=== PATIENT | male | born 1975 | race Caucasian/White ===

== ENCOUNTER 2020-07-03 08:18 | Outpatient (REF) | payer OTHER, SELFPAY ==
--- NOTE | 2020-07-03 08:33 | US_ITS ---
EXAMINATION: US ABDOMEN COMPLETE CLINICAL INFORMATION: Steatohepatitis, elevated liver function tests. COMPARISON: Ultrasound abdomen complete dated 09/03/2018 and 04/10/2018. TECHNIQUE: Real-time imaging of the abdominal viscera. FINDINGS: PANCREAS: Normal. ABDOMINAL AORTA: The proximal, mid, and distal segments are normal in caliber. INFERIOR VENA CAVA: Visualized portions are normal. LIVER: Normal. The liver is normal in size. The liver contour is normal. Parenchymal echogenicity is normal. No focal hepatic lesion. There is no intrahepatic biliary duct dilatation seen. GALLBLADDER: Normal. The gallbladder is physiologically distended without evidence of stones, sludge, polyps, wall thickening or pericholecystic fluid. COMMON BILE DUCT: Normal in caliber measuring 0.26 cm in diameter. RIGHT KIDNEY: Normal. No hydronephrosis. No renal calculi or focal parenchymal lesions. The kidney measures 12.9 cm in maximum dimension. LEFT KIDNEY: Normal. No hydronephrosis. No renal calculi or focal parenchymal lesions. The kidney measures 13.4 cm in maximum dimension. SPLEEN: Normal. The spleen measures 11.3 cm in maximum dimension. FREE FLUID: None. US/US abdomen complete IMPRESSION: Unremarkable complete ultrasound abdomen. No hepatic steatosis seen on the present exam.
== END 2020-07-03 08:19 | disposition home or self-care (01) ==
LOC: HO.US 08:18
PROVIDERS: PCP Internal Medicine; Visit Provider Internal Medicine
DX: K75.81 Nonalcoholic steatohepatitis (NASH) (principal); R94.5 Abnormal results of liver function studies
CPT/HCPCS: 76700

== ENCOUNTER → 2020-08-03 08:49 | Outpatient (BNVA) | payer OTHER, SELFPAY | PROVIDERS: PCP Internal Medicine; Visit Provider Student in an Organized Health Care Education/Training Program | DX: M25.50 Pain in unspecified joint (principal); M67.912 Unspecified disorder of synovium and tendon, left shoulder; M67.911 Unspecified disorder of synovium and tendon, right shoulder; M77.11 Lateral epicondylitis, right elbow; M77.12 Lateral epicondylitis, left elbow | CPT/HCPCS: 99202 ==

== ENCOUNTER 2020-08-15 06:31 | Outpatient (REF) | payer OTHER, SELFPAY ==
[2020-08-15 07:49] LABS: Basophils Percent Auto 0.5 % (0-2); Eosinophils Absolute Auto 0.1 X10*3/uL (0.0-0.4); Eosinophils Percent Auto 1.3 % (0-4); Hematocrit 42.7 % (42-52); Hemoglobin 14.1 g/dl (14.0-18.0); Imm Gran Abs Auto 0.02 X10*3/uL (0.00-0.03); Imm Gran Pct Auto 0.3 % (0.0-0.4); Lymphocytes Percent Auto 24.5 % (20-40); MANUAL DIFF FLAG NO; Mean Corpuscular Hemoglobin 27.3 pg (27.0-33.0); Mean Corpuscular Volume 82.8 fL (80-98); Mean Platelet Volume 10.5 fL (9.4-12.4); Monocytes Absolute Auto 0.6 X10*3/uL (0.1-1.2); Monocytes Percent Auto 7.9 % (2-11); Neutrophils Absolute Auto 5.3 X10*3/uL (2.0-8.3); Neutrophils Percent Auto 65.5 % (45-73); Platelet Count 208 X10*3/uL (160-400); Red Blood Count 5.16 X10*6/uL (4.60-5.80); Red Cell Distribution Width 13.8 % (11.0-16.0)
[2020-08-15 07:57] LABS: INTERNATIONAL NORM RATIO 1.1 (0.9-1.1); Prothrombin Time 13.5 SEC (10.8-13.0)
[2020-08-15 13:08] LABS: Alanine Aminotransferase 18 U/L (0-40); Albumin Level 4.1 g/dL (3.5-5.0); Alkaline Phosphatase 76 U/L (39-117); Aspartate Amino Transferase 11 U/L (5-37); Bilirubin Direct 0.4 mg/dL (0.0-0.5); Total Protein 7.4 g/dL (6.5-8.0)
[2020-08-17 09:33] LABS: Alpha Fetoprotein 1.3 ng/mL (<6.1)
== END 2020-08-15 06:32 | disposition home or self-care (01) ==
LOC: HO.LAB 06:31
PROVIDERS: PCP Internal Medicine; Referring Provider Internal Medicine; Visit Provider Student in an Organized Health Care Education/Training Program
DX: K75.81 Nonalcoholic steatohepatitis (NASH) (principal); R94.5 Abnormal results of liver function studies
CPT/HCPCS: 36415; 80076; 82105; 85025; 85610

== ENCOUNTER → 2020-08-20 13:11 | Outpatient (BNVA) | payer OTHER, SELFPAY | PROVIDERS: PCP Internal Medicine; Visit Provider Physician Assistant | DX: M65.331 Trigger finger, right middle finger (principal) | CPT/HCPCS: 20550; 99212; J1020 ==

== ENCOUNTER → 2020-09-21 08:10 | Outpatient (BNVA) | payer OTHER, SELFPAY | PROVIDERS: PCP Internal Medicine; Visit Provider Student in an Organized Health Care Education/Training Program ==

== ENCOUNTER 2020-09-27 08:00 | Outpatient (RCR) | payer OTHER, SELFPAY ==
--- NOTE | 2020-08-09 15:21 | MHC.PT.EP ---
[facility] [place] Office [place] Office [place] [address] [phone] F: [phone] F: [phone] F: [phone] F: [phone] Physical Therapy Plan of Care Date of Evaluation: 08/09/20 Date of Surgery: NA Diagnosis: YENNY SHOULDER TENDONITIS R>L Assessment: PARVIN IS A PLEASANT 45 YO MALE WITH INCREASING YENNY SHOULDER PAIN. IMPAIRMENTS INCLUDE DECREASED SHOULDER ROM, ALTERED SOFT TISSUE MOBILIY, DECREASED STRENGTH, ALTERED POSTURE AND POSITIONING, INCREASED PAIN. FUNCTIONAL LIMITATIONS INCLUDE DECREASED ABILITY TO PERFORM LIFTING, REACHING, PUSHING AND PULLING. HE REPORTS DECREASED PARTICIPATION IN RECREATIONAL AND FITNESS ACTIVITIES AND DISRUPTED SLEEP. Frequency and Duration: The patient will be seen 2 X WEEK FOR 5 WEEKS Short Term Goals: INITIATE HEP AND SELF MANAGEMENT OF SYMPTOMS IN 2 WEEKS Residential Goals: TO PLACE 5# OBJECT ON SHELF AT SHOULDER HEIGHT WITH PAIN NO GREATER THAN 2/10 IN 5 WEEKS TO DEMONSTRATE STRONG, PAIN FREE RESISTED TESTING FOR ALL MOTIONS IN 5 WEEKS TO REPORT SLEEPING THROUGH THE NIGHT WITHOUT WAKING FROM PAIN IN 5 WEEKS Treatment Plan: Modalities to reduce pain, spasms and effusion. Manual therapy to restore motion and function. Therapeutic exercise to improve strength and flexibility. Neuromuscular re-education for posture and balance. Therapeutic activities to return to functional activities of daily living. Electronically signed by: ALLIE MATUTE PT, DPT Please sign and return to therapist. Thank you for your referral.
== END 2021-05-07 09:33 | disposition home or self-care (01) ==
LOC: HO.PT 08:00
PROVIDERS: Visit Provider Student in an Organized Health Care Education/Training Program
DX: M67.911 Unspecified disorder of synovium and tendon, right shoulder (principal); M67.912 Unspecified disorder of synovium and tendon, left shoulder
CPT/HCPCS: 97110; 97140; 97162; 97535

== ENCOUNTER 2020-10-01 09:38 | Outpatient (REF) | payer OTHER, SELFPAY ==
--- NOTE | 2020-10-01 09:44 | US_ITS ---
EXAMINATION: US DIAGNOSTIC ULTRASOUND BREAST, RIGHT CLINICAL INFORMATION: Palpable abnormality. COMPARISON: None. TECHNIQUE: Ultrasound of the breast is performed with real-time hernandez scale imaging and color Doppler. FINDINGS: Targeted right breast ultrasound about the palpable abnormality demonstrates within the chest wall 8 o'clock position, approximately 14 cm from the nipple, a circumscribed hypoechoic mass with internal vascularity and with lobulation. This measures approximately 3.0 x 3.0 x 1.0 cm in size. There is some mild increased through sound transmission with no distal sound shadowing. The lesion is wider than it is tall. Ultrasound-guided biopsy is recommended. Results are discussed with the patient at time of visit. US/US breast RT limited IMPRESSION: Palpable abnormality adjacent to chest wall is not well evaluated on mammography and appears external to the breasts and on ultrasound is a circumscribed lesion with one portion which is lobulated with internal vascular flow. This may represent a lipoma; however, patient says that this is a definite change within the last 2 months. ASSESSMENT: BI-RADS 4: Suspicious (subcategory 4A: Low suspicion for malignancy) RECOMMENDATION: Ultrasound-guided core biopsy right chest wall mass.
--- NOTE | 2020-10-01 09:44 | MM_ITS ---
EXAMINATION: MM DIAGNOSTIC DIGITAL BREAST TOMOSYNTHESIS, BILATERAL US TARGETED RIGHT BREAST CLINICAL INFORMATION: Palpable abnormality right breast for approximately 2 months. COMPARISON: Mammography: None TECHNIQUE: Digital breast tomosynthesis is performed in both the craniocaudal and mediolateral oblique views along with computer-aided detection (CAD). Synthesized 2D images are generated from the tomosynthesis. Spot right breast exaggerated craniocaudal view performed. Targeted right breast ultrasound. FINDINGS: The breasts are almost entirely fatty (ACR BI-RADS breast composition Category a). There are no significant masses, abnormal calcifications, or other abnormalities. There are some benign persistent left axillary calcifications after repeat washing. It is difficult to visualize the palpable abnormality due to its deep positioning about the chest wall. This may represent a lipoma. Targeted right breast ultrasound about the palpable abnormality demonstrates within the chest wall 8 o'clock position, approximately 14 cm from the nipple, a circumscribed hypoechoic mass with internal vascularity and with lobulation. There is some mild increased through sound transmission with no distal sound shadowing. The lesion is wider than it is tall. Ultrasound-guided biopsy is recommended. Results are discussed with the patient at time of visit. MM/MM tomosynthesis diagnostic BI IMPRESSION: Palpable abnormality adjacent to chest wall is not well evaluated on mammography and appears external to the breasts and on ultrasound is a circumscribed lesion with one portion which is lobulated with internal vascular flow. This may represent a lipoma; however, patient says that this is a definite change within the last 2 months. ASSESSMENT: BI-RADS 4: Suspicious (subcategory 4A: Low suspicion for malignancy) RECOMMENDATION: Ultrasound-guided core biopsy right chest wall mass. This patient's information was entered into a reminder system with a target due date for their next mammogram.
== END 2020-10-01 09:39 | disposition home or self-care (01) ==
LOC: HO.MAMMO 09:38
PROVIDERS: PCP Internal Medicine; Visit Provider Internal Medicine
DX: N63.13 Unspecified lump in the right breast, lower outer quadrant (principal)
CPT/HCPCS: 76642; 77062; 77066

== ENCOUNTER → 2020-10-09 10:50 | Outpatient (BNVA) | payer OTHER, SELFPAY | PROVIDERS: PCP Internal Medicine; Visit Provider Student in an Organized Health Care Education/Training Program ==

== ENCOUNTER 2020-10-23 07:28 | Outpatient (REF) | payer OTHER, SELFPAY ==
--- NOTE | ~2020-10-23 | US_ITS ---
EXAMINATION: ULTRASOUND GUIDED CORE BIOPSY SOFT TISSUE CLINICAL INFORMATION: 45 year old male with right lateral superficial chest wall mass subcutaneous space, likely benign lipoma. COMPARISON: Mammography and right chest wall ultrasound 10/01/2020. FINDINGS: Proper informed consent is obtained from the patient after discussion of the procedure, potential risks and complications, and alternatives. Patient was given an opportunity for questions. The patient appeared to understand. The patient consented to the procedure and signed the consent form. GUIDANCE: Ultrasound-guided; aseptic technique. LESION: Circumscribed oval mass subcutaneous right chest wall approximately 3.3 x 2.9 x 1.3 cm. APPROACH: Lateral medial. ANESTHESIA: 8 mL 1% lidocaine. DERMATOTOMY: Single skin bret dermatotomy performed. NEEDLE: 14-gauge Achieve core biopsy device with 13.5-gauge co-axial guide needle. CORES: 4. CLIP: HydroMARK; shape: open coil. The clip marker deployment is visible during realtime ultrasound. The patient tolerated the procedure well. No immediate complications. Home instructions reviewed with the patient. Final pathology results are pending. US/US breast ndl core biopsy RT IMPRESSION: 1. Status post ultrasound-guided core biopsy superficial right chest wall mass. 2. Clip placed: HydroMARK; shape: open coil. 3. Pathology pending. An addendum report will be issued.
== END 2020-10-23 07:29 | disposition home or self-care (01) ==
LOC: HO.MAMMO 07:28
PROVIDERS: PCP Internal Medicine; Visit Provider Internal Medicine
DX: R22.2 Localized swelling, mass and lump, trunk (principal)
CPT/HCPCS: 19083; 88305; A4648

== ENCOUNTER → 2020-11-21 08:52 | Outpatient (BNVA) | payer OTHER, SELFPAY | PROVIDERS: PCP Internal Medicine; Visit Provider Surgery | DX: D17.1 Benign lipomatous neoplasm of skin and subcutaneous tissue of trunk (principal) | CPT/HCPCS: 99202 ==

== ENCOUNTER → 2020-12-18 14:27 | Outpatient (BNVA) | payer OTHER, SELFPAY | PROVIDERS: Visit Provider Orthopaedic Surgery | DX: M65.342 Trigger finger, left ring finger (principal) | CPT/HCPCS: 99202 ==

== ENCOUNTER 2020-12-26 12:33 | Outpatient (REF) | payer OTHER, SELFPAY ==
[2020-12-26 12:30] VITALS: BP 134/71; PULSE 66; RESP 19; TEMP 36.5; O2SAT 100; BMI 31.1
--- NOTE | 2020-12-26 13:06 | W.PM.OPN ---
Operative Note Operative Note Date of Service: 12/26/20 Narrative: Preop diagnosis: Lipoma, right chest wall laterally Postop diagnosis: The same Procedure: excision of lipoma, right chest wall Surgeon: Calixto Ríos MD The patient is a 45-year-old male with note of a lipomatous mass on the right chest wall laterally. He understood the technique of excision under local anesthesia. He was ordered the risks, benefits, and alternatives He was brought to the minor procedure room placed in left lateral decubitus position. The area of the lipoma was prepped and draped in the usual sterile fashion. I infiltrated the planned line of incision overlying the skin using lidocaine 1%. Incision made on the skin using blade 15. It was carried down to full-thickness skin and subcutaneous fat using the blade. I then proceeded to use the Metzenbaum scissors to gently dissect the subcutaneous layer. I was palpating for the lipoma as we deepened the incision. Lipomas deep in subcutaneous layer and of thick amount subcutaneous the path fat before we able to visualize the lipoma for I sharply dissected the lipoma to freed from the rest of the he has layer and posteriorly. This was then delivered and sent as specimen. The lipoma measured about 3.8 cm in diameter. I irrigated the area of excision. I closed the sub deep subcutaneous layer with Dexon 3-0 interrupted sutures. Skin closure was achieved with nylon 3-0 interrupted sutures. Dressings were applied. He tolerated procedure well. There were no complications noted. Estimated blood loss about 5 cc
[2020-12-26 13:10] VITALS: BP 111/87; PULSE 98; RESP 19; O2SAT 100
--- NOTE | 2020-12-26 13:10 | PM.OP ---
Brief Operative Note Date of Service: 12/26/20 Pre-op diagnosis: Lipoma, right chest wall Post-op diagnosis: same Procedure: Excision of lipoma, right chest wall Surgeon: Calixto Ríos MD Anesthesia: local Estimated blood loss (mL): 5 Pathology: other (Lipoma) Condition: stable Disposition: other (Home)
== END 2020-12-26 12:34 | disposition home or self-care (01) ==
LOC: HO.MS 12:33
PROVIDERS: PCP Internal Medicine; Visit Provider Surgery
PROC: (CPT 21552; principal; 2020-12-26 13:00)
DX: D17.1 Benign lipomatous neoplasm of skin and subcutaneous tissue of trunk (principal)
CPT/HCPCS: 21552; 88304; 88341; 88342

== ENCOUNTER → 2021-01-04 09:36 | Outpatient (BNVA) | payer OTHER, SELFPAY | PROVIDERS: PCP Internal Medicine; Visit Provider Surgery | DX: D17.1 Benign lipomatous neoplasm of skin and subcutaneous tissue of trunk (principal) | CPT/HCPCS: 99212 ==

== ENCOUNTER → 2021-04-22 13:16 | Outpatient (BNVA) | payer OTHER, SELFPAY | PROVIDERS: PCP Internal Medicine; Visit Provider Anesthesiology | DX: M51.36 Other intervertebral disc degeneration, lumbar region (principal); M48.062 Spinal stenosis, lumbar region with neurogenic claudication; T85.192A Other mechanical complication of implanted electronic neurostimulator of spinal cord electrode (lead), initial encounter | CPT/HCPCS: 99202 ==

== ENCOUNTER 2021-04-23 10:05 | Outpatient (REF) | payer OTHER, SELFPAY ==
--- NOTE | ~2021-04-23 | XR_ITS ---
EXAMINATION: XR THORACOLUMBAR SPINE CLINICAL INFORMATION: Assess or abnormality of implanted device. COMPARISON: None TECHNIQUE: PA and lateral views of the thoracic spine were obtained. FINDINGS: Spinal stimulation leads are seen with tips terminating at the level of T8-9. The vertebral alignment is normal. No intrinsic bony abnormality. The disc heights and neural foramina are well maintained. The endplates and posterior elements are normal. No fracture or subluxation. The surrounding prevertebral soft tissues are unremarkable. XR/XR thoracic spine 2V IMPRESSION: 1. Spinal stimulation leads with tips terminating at T8-9 without abnormality. 2. No significant thoracic spine abnormality.
== END 2021-04-23 10:06 | disposition home or self-care (01) ==
LOC: HO.XRAY 10:05
PROVIDERS: PCP Internal Medicine; Visit Provider Anesthesiology
DX: T85.192A Other mechanical complication of implanted electronic neurostimulator of spinal cord electrode (lead), initial encounter (principal)
CPT/HCPCS: 72070

== ENCOUNTER → 2021-05-08 14:57 | Outpatient (BNVA) | payer OTHER, SELFPAY | PROVIDERS: PCP Internal Medicine; Visit Provider Anesthesiology | DX: M51.36 Other intervertebral disc degeneration, lumbar region (principal); M48.062 Spinal stenosis, lumbar region with neurogenic claudication; T85.192A Other mechanical complication of implanted electronic neurostimulator of spinal cord electrode (lead), initial encounter; I10 Essential (primary) hypertension; E66.9 Obesity, unspecified; Z68.34 Body mass index [BMI] 34.0-34.9, adult; Z96.82 Presence of neurostimulator | CPT/HCPCS: 99212 ==

== ENCOUNTER 2021-08-27 09:21 | Outpatient (REF) | payer OTHER, SELFPAY | END 2021-08-27 09:22 | disposition home or self-care (01) | LOC: HO.US 09:21 | PROVIDERS: PCP Internal Medicine; Visit Provider Internal Medicine | DX: Z13.89 Encounter for screening for other disorder (principal) ==

== ENCOUNTER 2021-09-23 08:14 | Outpatient (REF) | payer OTHER, SELFPAY ==
--- NOTE | ~2021-09-23 | US_ITS ---
EXAMINATION: US COMPLETE ABDOMEN WITH LIVER ELASTOGRAPHY CLINICAL INFORMATION: Elevated liver function tests. Liver fibrosis. COMPARISON: Previous abdominal ultrasounds, most recent July 2020. TECHNIQUE: Real-time imaging of the abdominal viscera. Noninvasive ultrasound liver fibrosis assessment is performed using Richardson ElastPQ point quantification shear wave elastography (2D-SWE) with a C5-2 MHz transducer. Multiple elastography samples are obtained. FINDINGS: PANCREAS: Not well visualized due to bowel gas. ABDOMINAL AORTA: The proximal, middle, and distal aortic segments are normal in caliber. INFERIOR VENA CAVA: Visualized portions are normal. LIVER: Liver echotexture is increased. The liver is normal in size and contour. No focal liver lesion or biliary duct dilatation. The right lobe measures 17 cm in length. The left lobe measures 13 cm in length. Portal flow is normal/hepatopedal. Shear wave liver elastography median stiffness is 1.6 m/s (reference: normal median stiffness is 1.3 m/s or less). IQR/median stiffness to assess sampling precision is 0.24 (reference: good quality data set is IQR/median stiffness of 0.15 or less). GALLBLADDER: Normal. The gallbladder is physiologically distended without evidence of stones, sludge, polyps, wall thickening or pericholecystic fluid. COMMON BILE DUCT: Normal in caliber measuring 0.5 cm in diameter. RIGHT KIDNEY: Normal. No hydronephrosis. No renal calculi or focal parenchymal lesions. The kidney measures 12.6 cm in maximum dimension. LEFT KIDNEY: Normal. No hydronephrosis. No renal calculi or focal parenchymal lesions. The kidney measures 13 cm in maximum dimension. SPLEEN: Normal. The spleen measures 12 cm in maximum dimension. FREE FLUID: None. US/US abdomen comp w elastography IMPRESSION: 1. Impression: Echogenic liver. Limited visualization of the pancreas. 2. Liver elastography: Limited due to sampling error. In the absence of other known clinical signs, rules out compensated advanced chronic liver disease. REFERENCE: Society of Radiologists in Ultrasound Liver Stiffness Thresholds (2020): LIVER STIFFNESS THRESHOLDS: *Liver Stiffness equal or less than 1.3 m/s: High probability of being normal. *Liver Stiffness less than 1.7 m/s: In the absence of other known clinical signs, rules out compensated advanced chronic liver disease. *Liver Stiffness 1.7-2.1 m/s: Suggestive of compensated advanced chronic liver disease but need further test for confirmation. *Liver Stiffness over 2.1 m/s: Rules in compensated advanced chronic liver disease. *Liver Stiffness over 2.4 m/s: Suggestive of clinically significant portal hypertension. QUALITY OF DATA SET: *IQR/Median value equal or less than 0.15 implies a quality data set. *IQR/Median value over 0.15 implies a poor quality data set. SIGNIFICANT CHANGE FROM PRIOR EXAM: Significant change if liver stiffness measurement is 10% or greater from prior exam. OTHER CONSIDERATIONS: The stage of liver fibrosis may be overestimated in the setting of acute hepatitis, liver inflammation, elevated liver function tests, hepatic vascular congestion, obstructive cholestasis, non-fasting state, and infiltrative diseases such as amyloidosis and lymphoma. In some patients with NAFLD, the liver stiffness thresholds for compensated advanced chronic liver disease may be lower. In causes other than viral hepatitis and NAFLD, liver stiffness thresholds are not well established.
== END 2021-09-23 08:15 | disposition home or self-care (01) ==
LOC: HO.US 08:14
PROVIDERS: Visit Provider Internal Medicine
DX: K75.81 Nonalcoholic steatohepatitis (NASH) (principal); R94.5 Abnormal results of liver function studies; K74.00 Hepatic fibrosis, unspecified
CPT/HCPCS: 76705; 76981

== ENCOUNTER 2022-01-28 06:56 | Outpatient (REF) | payer OTHER, SELFPAY ==
[2022-01-28 08:03] LABS: Alanine Aminotransferase 45 U/L (0-40); Albumin Level 3.9 g/dL (3.5-5.0); Alkaline Phosphatase 60 U/L (39-117); Aspartate Amino Transferase 17 U/L (5-37); Bilirubin Direct 0.3 mg/dL (0.0-0.5); Bilirubin Total 0.7 mg/dL (0.0-1.0); Total Protein 6.9 g/dL (6.5-8.0)
== END 2022-01-28 06:57 | disposition home or self-care (01) ==
LOC: HO.LAB 06:56
PROVIDERS: PCP Internal Medicine; Visit Provider Internal Medicine
DX: K76.0 Fatty (change of) liver, not elsewhere classified (principal); R94.5 Abnormal results of liver function studies
CPT/HCPCS: 36415; 80076

== ENCOUNTER → 2022-02-13 09:55 | Outpatient (BNVA) | payer OTHER, SELFPAY | PROVIDERS: PCP Internal Medicine; Visit Provider Anesthesiology | DX: M51.36 Other intervertebral disc degeneration, lumbar region (principal); T85.192A Other mechanical complication of implanted electronic neurostimulator of spinal cord electrode (lead), initial encounter; M48.062 Spinal stenosis, lumbar region with neurogenic claudication | CPT/HCPCS: 99212 ==

== ENCOUNTER 2022-02-26 17:55 | Outpatient (REF) | payer OTHER, SELFPAY | END 2022-02-26 17:56 | disposition home or self-care (01) | LOC: HO.MRI 17:55 | PROVIDERS: Visit Provider Anesthesiology | DX: Z13.89 Encounter for screening for other disorder (principal) ==

== ENCOUNTER 2022-03-17 07:22 | Day surgery (SDC) | payer OTHER, SELFPAY ==
[2022-03-11 16:00] VITALS: BMI 37.7
--- NOTE | 2022-03-14 09:21 | HO.ANESPROP2 ---
Documented by User: Jody Velasquez NP 03/14/22 09:22 HPI - Anesthesia Eval Consult details Narrative: 47yo M for Upper Endoscopy and Colonoscopy ? spinal stim in situ Chronic opioids PMFSH Active Problems Active Problems: All Active Problems (Updated 04/22/21 @ 14:10 by Buck Branch MD) Spinal stenosis of lumbar region with neurogenic claudication (Acute) Failed spinal cord stimulator (Acute) Disc degeneration, lumbar (Acute) Trigger finger, left ring finger (Acute) Lipoma of chest wall (Acute) Trigger middle finger of right hand (Acute) Lateral epicondylitis of both elbows (Acute) Tendinopathy of right rotator cuff (Acute) Tendinopathy of left rotator cuff (Acute) Polyarthralgia (Acute) Past Medical History Medical History Diabetes Disc degeneration, lumbar Failed spinal cord stimulator Hypertension Lipoma of chest wall Obesity Spinal stenosis of lumbar region with neurogenic claudication Family History Family History Father HTN (hypertension) Mother HTN (hypertension) Surgical History Surgical History H/O left knee surgery S/P insertion of spinal cord stimulator Social History Social History Alcohol intake: never Patient Tobacco Use Status: Never used Tobacco Use of substances other than those prescribed or required for medical reasons: No Are you DNR?: No Advance Directives: No Advance Directives Information Provided: Yes Recently lost weight without trying: No Nutrition Risks: No Nutritional Risk Meds Allergies Allergy/AdvReac Type Severity Reaction Status Date / Time No Known Allergies Allergy Verified 02/13/22 10:10 Home Medications Medication Instructions Recorded Confirmed Last Taken Type gabapentin 600 mg tablet 600 mg PO BEDTIME 08/03/20 11/21/20 Unknown History losartan 100 mg tablet 100 mg PO DAILY 08/03/20 11/21/20 Unknown History metformin 500 mg tablet 500 mg PO BID 08/03/20 11/21/20 Unknown History metoprolol succinate 100 mg 100 mg PO DAILY 08/03/20 11/21/20 Unknown History tablet,extended release 24 hr risperidone 2 mg tablet (Risperdal) 2 mg PO DAILY 08/03/20 11/21/20 Unknown History simvastatin 5 mg tablet 5 mg PO DAILY 08/03/20 11/21/20 Unknown History bupropion HCl 150 mg 24 hr tablet, 150 mg PO QAM 04/22/21 Unknown History extended release cyclobenzaprine 10 mg tablet 10 mg PO BEDTIME 04/22/21 Unknown History eszopiclone 3 mg tablet 3 mg PO BEDTIME PRN insomnia 04/22/21 Unknown History lorazepam 1 mg tablet 1 - 2 mg PO TID PRN anxiety 04/22/21 Unknown History methocarbamol 750 mg tablet 750 mg PO Q6H PRN 04/22/21 Unknown History omeprazole 20 mg capsule,delayed 20 mg PO DAILY 04/22/21 Unknown History release oxycodone-acetaminophen 5 mg-325 1 tab PO TID PRN 04/22/21 Unknown History mg tablet paroxetine HCl 40 mg tablet 40 mg PO DAILY 04/22/21 Unknown History risperidone 3 mg tablet 3 mg PO BEDTIME 04/22/21 Unknown History risperidone 4 mg tablet 4 mg PO QPM 04/22/21 Unknown History sulindac 200 mg tablet 200 mg PO BID 04/22/21 Unknown History topiramate 50 mg tablet 50 mg PO DAILY 04/22/21 Unknown History Exam Exam Date and Time: March 14, 2022920 Height,Weight and Vital Signs: Height 6 ft Weight 126.099 kg Assessment and Plan Assessment Anesthesia Assessment: Chart Reviewed Documented by User: Jess Baker MD 03/17/22 08:50 PMFSH Past Medical History Medical History Diabetes Disc degeneration, lumbar Failed spinal cord stimulator Hypertension Lipoma of chest wall Obesity Spinal stenosis of lumbar region with neurogenic claudication Functional capacity: independent ambulation Family History Family History Father HTN (hypertension) Mother HTN (hypertension) Family history of problems with anesthesia: No Surgical History Surgical History H/O left knee surgery S/P insertion of spinal cord stimulator History of Problems with Anesthesia: No Social History Social History Alcohol intake: never Patient Tobacco Use Status: Never used Tobacco Use of substances other than those prescribed or required for medical reasons: No Are you DNR?: No Advance Directives: No Advance Directives Information Provided: Yes Recently lost weight without trying: No Nutrition Risks: No Nutritional Risk Meds Allergies Allergy/AdvReac Type Severity Reaction Status Date / Time No Known Allergies Allergy Verified 02/13/22 10:10 Home Medications Medication Instructions Recorded Confirmed Last Taken Type gabapentin 600 mg tablet 600 mg PO BEDTIME 08/03/20 11/21/20 Unknown History losartan 100 mg tablet 100 mg PO DAILY 08/03/20 11/21/20 Unknown History metformin 500 mg tablet 500 mg PO BID 08/03/20 11/21/20 Unknown History metoprolol succinate 100 mg 100 mg PO DAILY 08/03/20 11/21/20 Unknown History tablet,extended release 24 hr risperidone 2 mg tablet (Risperdal) 2 mg PO DAILY 08/03/20 11/21/20 Unknown History simvastatin 5 mg tablet 5 mg PO DAILY 08/03/20 11/21/20 Unknown History bupropion HCl 150 mg 24 hr tablet, 150 mg PO QAM 04/22/21 Unknown History extended release cyclobenzaprine 10 mg tablet 10 mg PO BEDTIME 04/22/21 Unknown History eszopiclone 3 mg tablet 3 mg PO BEDTIME PRN insomnia 04/22/21 Unknown History lorazepam 1 mg tablet 1 - 2 mg PO TID PRN anxiety 04/22/21 Unknown History methocarbamol 750 mg tablet 750 mg PO Q6H PRN 04/22/21 Unknown History omeprazole 20 mg capsule,delayed 20 mg PO DAILY 04/22/21 Unknown History release oxycodone-acetaminophen 5 mg-325 1 tab PO TID PRN 04/22/21 Unknown History mg tablet paroxetine HCl 40 mg tablet 40 mg PO DAILY 04/22/21 Unknown History risperidone 3 mg tablet 3 mg PO BEDTIME 04/22/21 Unknown History risperidone 4 mg tablet 4 mg PO QPM 04/22/21 Unknown History sulindac 200 mg tablet 200 mg PO BID 04/22/21 Unknown History topiramate 50 mg tablet 50 mg PO DAILY 04/22/21 Unknown History Exam Airway Mallampati Class: III TM Dist: >3cm Neck ROM: Full Heart: RRR Lungs: CTA Assessment and Plan Final Anesthetic Review Family History of Problems with Anesthesia: No History of Problems with Anesthesia: No ASA Class: III Final Preanesthetic Review: No Changes in Pt Med Stat, Meds/Allgs Chart Reviewed, Consent Obtained/Reviewed and Anes Risks/Benef Reviewed Patient Risk: Intermediate Procedure Risk: Low Anesthetic Plan Anesthetic Plan: MAC: Disposition: Standard PACU
[2022-03-17 07:37] VITALS: BMI 36.6
[2022-03-17 07:47] VITALS: BP 140/92; PULSE 82; RESP 16; TEMP 36.2; O2SAT 97
[2022-03-17] MEDS: Lactated Ringers 1,000 ML 100 ML IVCONT (07:59)
[2022-03-17 08:01] LABS: Glucose, Whole Blood 100 mg/dL (60-115)
--- NOTE | 2022-03-17 09:29 | P.CONAN_ITS ---
[facility] [place] Active Problems Active Problems: All Active Problems (Updated 03/17/22 @ 07:18 by Radha Whittaker RN) Polyarthralgia (Acute) Tendinopathy of left rotator cuff (Acute) Tendinopathy of right rotator cuff (Acute) Lateral epicondylitis of both elbows (Acute) Trigger middle finger of right hand (Acute) Trigger finger, left ring finger (Acute) Spinal stenosis of lumbar region with neurogenic claudication (Acute) Failed spinal cord stimulator (Acute) Disc degeneration, lumbar (Acute) Lipoma of chest wall (Acute) Past Medical History Medical History Diabetes Disc degeneration, lumbar Failed spinal cord stimulator Hypertension Lipoma of chest wall Obesity Spinal stenosis of lumbar region with neurogenic claudication Functional capacity: independent ambulation Family History Family History Father HTN (hypertension) Mother HTN (hypertension) Family history of problems with anesthesia: No Surgical History Surgical History H/O left knee surgery S/P insertion of spinal cord stimulator History of Problems with Anesthesia: No Social History Social History Alcohol intake: never Patient Tobacco Use Status: Never used Tobacco Use of substances other than those prescribed or required for medical reasons: No Are you DNR?: No Advance Directives: No Advance Directives Information Provided: Yes Recently lost weight without trying: No Nutrition Risks: No Nutritional Risk Meds Allergies Allergy/AdvReac Type Severity Reaction Status Date / Time No Known Allergies Allergy Verified 02/13/22 10:10 Active Medications: Current Medications Lactated Ringer's (Lr) 1,000 mls @ 100 mls/hr IVCONT .Q10H RACHNA Last Admin: 03/17/22 07:59 Dose: 100 mls/hr Sodium Biphosphate/Sodium Phosphate (Sodium Phosphate,Garrard-Dibasic 133 Ml Enema) 133 ml MS ONCE PRN PRN Reason: Poor Colonoscopy Prep Results Home Medications Medication Instructions Recorded Confirmed Last Taken Type gabapentin 600 mg tablet 600 mg PO BEDTIME 08/03/20 11/21/20 Unknown History losartan 100 mg tablet 100 mg PO DAILY 08/03/20 11/21/20 Unknown History metformin 500 mg tablet 500 mg PO BID 08/03/20 11/21/20 Unknown History metoprolol succinate 100 mg 100 mg PO DAILY 08/03/20 11/21/20 Unknown History tablet,extended release 24 hr risperidone 2 mg tablet (Risperdal) 2 mg PO DAILY 08/03/20 11/21/20 Unknown History simvastatin 5 mg tablet 5 mg PO DAILY 08/03/20 11/21/20 Unknown History bupropion HCl 150 mg 24 hr tablet, 150 mg PO QAM 04/22/21 Unknown History extended release cyclobenzaprine 10 mg tablet 10 mg PO BEDTIME 04/22/21 Unknown History eszopiclone 3 mg tablet 3 mg PO BEDTIME PRN insomnia 04/22/21 Unknown History lorazepam 1 mg tablet 1 - 2 mg PO TID PRN anxiety 04/22/21 Unknown History methocarbamol 750 mg tablet 750 mg PO Q6H PRN 04/22/21 Unknown History omeprazole 20 mg capsule,delayed 20 mg PO DAILY 04/22/21 Unknown History release oxycodone-acetaminophen 5 mg-325 1 tab PO TID PRN 04/22/21 Unknown History mg tablet paroxetine HCl 40 mg tablet 40 mg PO DAILY 04/22/21 Unknown History risperidone 3 mg tablet 3 mg PO BEDTIME 04/22/21 Unknown History risperidone 4 mg tablet 4 mg PO QPM 04/22/21 Unknown History sulindac 200 mg tablet 200 mg PO BID 04/22/21 Unknown History topiramate 50 mg tablet 50 mg PO DAILY 04/22/21 Unknown History Exam Exam Date and Time: March 17, 2022 0929 Height,Weight and Vital Signs: Height 6 ft Weight 122.47 kg Last Vital Signs Temp 97.1 F 03/17/22 07:47 Pulse 82 03/17/22 07:47 Resp 16 03/17/22 07:47 BP 140/92 H 03/17/22 07:47 Pulse Ox 97 03/17/22 07:47 O2 Del Method 03/17/22 07:47 Pertinent Lab Results Pertinent Lab Results: Laboratory Tests 03/17/22 07:55 POC Glucose 100 Airway Mallampati Class: III TM Dist: >3cm Neck ROM: Full Heart: RRR Lungs: CTA Assessment and Plan Final Anesthetic Review Family History of Problems with Anesthesia: No History of Problems with Anesthesia: No ASA Class: III Final Preanesthetic Review: No Changes in Pt Med Stat, Meds/Allgs Chart Reviewed, Consent Obtained/Reviewed and Anes Risks/Benef Reviewed Patient Risk: Intermediate Procedure Risk: Low Anesthetic Plan Anesthetic Plan: MAC: Disposition: Standard PACU
[2022-03-17 09:56] VITALS: BP 147/94; PULSE 94; RESP 16; TEMP 36.2; O2SAT 96
--- NOTE | 2022-03-17 09:58 | PM.OP ---
Brief Operative Note Date of Service: 03/17/22 Pre-op diagnosis: GERD, Screening Post-op diagnosis: other (Hiatal hernia, Diverticulosis) Procedure: EGD with biopsies, Colonoscopy to the cecum and TI Surgeon: Yony Licona Anesthesia: MAC Was an Stretcher Leveler Operator used for this Procedure?: No Estimated blood loss (mL): 2.0 Pathology: other (A. EG Junction at 40cm) Condition: stable Disposition: PACU
[2022-03-17] MEDS: Acetaminophen 325 MG TABLET 650 MG PO (10:09)
[2022-03-17 10:11] VITALS: BP 145/85; PULSE 78; RESP 18; O2SAT 97
[2022-03-17 10:26] VITALS: BP 135/93; PULSE 76; RESP 18; TEMP 36.2; O2SAT 98
--- NOTE | 2022-03-17 10:40 | HO.POSTANES ---
Post Anesthesia Evaluation Post Anesthesia Evaluation Vital Signs: Vital Signs Temp Pulse Resp BP Pulse Ox O2 Del Method 03/17/22 10:26 97.1 F 76 18 135/93 H 98 Room Air 03/17/22 10:11 78 18 145/85 H 97 Room Air 03/17/22 09:56 97.1 F 94 16 147/94 H 96 Room Air 03/17/22 07:47 97.1 F 82 16 140/92 H 97 Room Air Anesthesia: Monitored Mental Status: Awake Pain Control: Satisfactory Nausea/Vomiting: None Hydration: Adequate Anesthesia-Related Issues: No Anes. Related Issues
--- NOTE | 2022-03-17 21:15 | OP_ITS ---
SURGEON: Yony Licona MD INDICATIONS: The patient presents for evaluation of colorectal cancer screening and gastroesophageal reflux. Full consent has been obtained from him for this, including risks of bleeding and perforation. PREOPERATIVE DIAGNOSIS: POSTOPERATIVE DIAGNOSIS: PROCEDURE PERFORMED: Esophagogastroduodenoscopy with biopsies and colonoscopy to the cecum and terminal ileum. ESTIMATED BLOOD LOSS: COMPLICATIONS: ANESTHESIA: Monitored anesthesia care. ASSISTANTS: SPECIMENS: PREOPERATIVE DIAGNOSES: Gastroesophageal reflux, colorectal cancer screening. POSTOPERATIVE DIAGNOSES: Diverticulosis, internal hemorrhoids, hiatal hernia, gastroesophageal reflux. DESCRIPTION OF PROCEDURE: The patient was placed in the left lateral decubitus position. The digital rectal exam revealed no abnormalities. The Olympus video pediatric colonoscope was entered into the rectum and advanced easily to the cecum. Once in the cecum, I did identify normal-appearing cecal pouch with appendiceal orifice and a normal-appearing ileocecal valve. The terminal ileum was cannulated and appeared normal. The scope was withdrawn back in the colon. The entire cecum and ileocecal valve appeared normal. The scope was then slowly withdrawn assessing all mucosal surfaces carefully. Preparation was excellent. I did not visualize any sign of polyps, colitis, nor angiodysplasia. There was a mild amount of sigmoid diverticulosis. In the rectum, scope was retroflexed visualizing internal hemorrhoids, but no other pathology. The rectal mucosa appeared normal. The scope was straightened and withdrawn from the patient. He was turned around for the upper endoscopy. The Olympus video gastroscope was passed in the posterior oropharynx and upper esophagus under direct vision. The scope was passed slowly to the distal esophagus. The gastroesophageal junction appeared at 40 cm. There was some evidence of edema, erythema, and minimal irregularity consistent with reflux. There was no evidence of esophagitis nor Pina's mucosa. The scope was advanced into the stomach. There was a small hiatal hernia. The scope was advanced to the pylorus and the duodenum was cannulated in the descending portion. The duodenum including the bulb appeared normal without mass or ulceration. The scope was withdrawn back into the stomach. The gastric antrum and body appeared normal good peristalsis. Scope was retroflexed visualizing the proximal stomach carefully which appeared normal, without any sign of mass or ulceration. The scope was straightened and withdrawn back to the esophagus. Biopsies were obtained at the EG junction at 40 cm. Proximal to this esophageal mucosa appeared normal. The scope was withdrawn from the patient. He tolerated the procedure well and was returned to the recovery area in stable condition. IMPRESSION: 1. Hiatal hernia, gastroesophageal reflux. 2. Diverticulosis. 3. Internal hemorrhoids. PLAN: The results of the biopsies will be checked. I would recommend a repeat colonoscopy in 10 years for further screening. He was advised to continue his daily omeprazole for relief of his reflux symptoms. He does have an appointment to see me again in the Fall for a followup of his underlying history of fatty liver. He was advised not to use any aspirin and NSAIDs for 1 week. Of note, he did mention some abdominal pain he was having. His abdominal ultrasound from August was negative for gallstones, nor any other significant pathology. I did advise him to let me know if this becomes more of a problem. This has all been discussed with his . MD PADMINI Disla/STEPHON / [id number] MTDD
== END 2022-03-17 10:55 | disposition home or self-care (01) ==
PROVIDERS: Visit Provider Internal Medicine
PROC: (CPT 45378; principal; 2022-03-17 08:30)
DX: Z12.11 Encounter for screening for malignant neoplasm of colon (principal); K57.30 Diverticulosis of large intestine without perforation or abscess without bleeding; K64.8 Other hemorrhoids; K21.9 Gastro-esophageal reflux disease without esophagitis; R94.5 Abnormal results of liver function studies; K75.81 Nonalcoholic steatohepatitis (NASH); K74.00 Hepatic fibrosis, unspecified; K44.9 Diaphragmatic hernia without obstruction or gangrene; I10 Essential (primary) hypertension; F31.9 Bipolar disorder, unspecified; E11.9 Type 2 diabetes mellitus without complications; G47.33 Obstructive sleep apnea (adult) (pediatric); Z99.89 Dependence on other enabling machines and devices; Z79.899 Other long term (current) drug therapy; Z79.84 Long term (current) use of oral hypoglycemic drugs
CPT/HCPCS: 45378; 43239; 82947; 88305

== ENCOUNTER → 2022-09-29 15:33 | Outpatient (BNVA) | payer OTHER, SELFPAY | PROVIDERS: PCP Internal Medicine; Visit Provider Anesthesiology | DX: M51.36 Other intervertebral disc degeneration, lumbar region (principal); T85.192A Other mechanical complication of implanted electronic neurostimulator of spinal cord electrode (lead), initial encounter; M48.062 Spinal stenosis, lumbar region with neurogenic claudication | CPT/HCPCS: 99212 ==

== ENCOUNTER 2022-10-23 08:50 | Outpatient (REF) | payer OTHER, SELFPAY ==
[2022-10-23 16:54] LABS: Urine Cytology See Pathology rpt
== END 2022-10-23 08:51 | disposition home or self-care (01) ==
LOC: HO.LAB 08:50
PROVIDERS: PCP Internal Medicine; Visit Provider Nurse Practitioner Family
DX: R31.29 Other microscopic hematuria (principal); N40.0 Benign prostatic hyperplasia without lower urinary tract symptoms
CPT/HCPCS: 88112; 99202

== ENCOUNTER 2022-11-03 09:19 | Outpatient (REF) | payer OTHER, SELFPAY ==
--- NOTE | ~2022-11-03 | US_ITS ---
EXAMINATION: US COMPLETE ABDOMEN WITH LIVER ELASTOGRAPHY CLINICAL INFORMATION: Fatty liver COMPARISON: None. TECHNIQUE: Real-time imaging of the abdominal viscera. Noninvasive ultrasound liver fibrosis assessment is performed using Richardson ElastPQ point quantification shear wave elastography (2D-SWE) with a C5-2 MHz transducer. Multiple elastography samples are obtained. FINDINGS: PANCREAS: The pancreas is completely obscured by gas.. ABDOMINAL AORTA: The proximal, middle, and distal aortic segments are normal in caliber. INFERIOR VENA CAVA: Visualized portions are normal. LIVER: The liver demonstrates normal size, lobulated contour and increased echogenicity. No focal lesion or intrahepatic biliary duct dilatation. The right lobe measures 16.0 cm in length. The left lobe measures 12.9 cm in length. Portal flow is hepatopedal Shear wave liver elastography median stiffness is 1.41 m/s (reference: normal median stiffness is 1.3 m/s or less). IQR/median stiffness to assess sampling precision is 0.09 (reference: good quality data set is IQR/median stiffness of 0.15 or less). GALLBLADDER: Normal. The gallbladder is physiologically distended without evidence of stones, sludge, polyps, wall thickening or pericholecystic fluid. COMMON BILE DUCT: Normal in caliber measuring 0.6 cm in diameter. RIGHT KIDNEY: Normal. No hydronephrosis. No renal calculi or focal parenchymal lesions. The kidney measures 12.1 cm in maximum dimension. LEFT KIDNEY: Normal. No hydronephrosis. No renal calculi or focal parenchymal lesions. The kidney measures 13.1 cm in maximum dimension. SPLEEN: Normal. The spleen measures 11.5 cm in maximum dimension. FREE FLUID: None. US/US abdomen comp w elastography IMPRESSION: 1. Slightly however there are echogenic liver without focal lesion. Mild hepatic steatosis 2. Liver elastography: Median liver stiffness measures 1.41 m/s corresponding to cACLD (ruled out) REFERENCE: Society of Radiologists in Ultrasound Liver Stiffness Thresholds (2019): LIVER STIFFNESS THRESHOLDS: *Liver Stiffness equal or less than 1.3 m/s: High probability of being normal. *Liver Stiffness less than 1.7 m/s: In the absence of other known clinical signs, rules out compensated advanced chronic liver disease. *Liver Stiffness 1.7-2.1 m/s: Suggestive of compensated advanced chronic liver disease but need further test for confirmation. *Liver Stiffness over 2.1 m/s: Rules in compensated advanced chronic liver disease. *Liver Stiffness over 2.4 m/s: Suggestive of clinically significant portal hypertension. QUALITY OF DATA SET: *IQR/Median value equal or less than 0.15 implies a quality data set. *IQR/Median value over 0.15 implies a poor quality data set. SIGNIFICANT CHANGE FROM PRIOR EXAM: Significant change if liver stiffness measurement is 10% or greater from prior exam. OTHER CONSIDERATIONS: The stage of liver fibrosis may be overestimated in the setting of acute hepatitis, liver inflammation, elevated liver function tests, hepatic vascular congestion, obstructive cholestasis, non-fasting state, and infiltrative diseases such as amyloidosis and lymphoma. In some patients with NAFLD, the liver stiffness thresholds for compensated advanced chronic liver disease may be lower. In causes other than viral hepatitis and NAFLD, liver stiffness thresholds are not well established.
== END 2022-11-03 09:20 | disposition home or self-care (01) ==
LOC: HO.US 09:19
PROVIDERS: PCP Internal Medicine; Visit Provider Internal Medicine
DX: K75.81 Nonalcoholic steatohepatitis (NASH) (principal); K74.00 Hepatic fibrosis, unspecified; R94.5 Abnormal results of liver function studies
CPT/HCPCS: 76705; 76981

== ENCOUNTER 2022-11-10 09:44 | Outpatient (REF) | payer OTHER, SELFPAY ==
--- NOTE | ~2022-11-10 | US_ITS ---
EXAMINATION: US PELVIS LIMITED (BLADDER) CLINICAL INFORMATION: Benign prostatic hyperplasia without lower urinary tract symptoms. COMPARISON: None TECHNIQUE: Real-time imaging of the bladder. FINDINGS: BLADDER: Well distended and normal. Bilateral ureteral jets are demonstrated. Prevoid bladder volume is 165 mL. Postvoid bladder volume is 3 mL. Prostate volume 27 mL. US/US bladder IMPRESSION: The prostate measures 27 mL.
== END 2022-11-10 09:45 | disposition home or self-care (01) ==
LOC: HO.US 09:44
PROVIDERS: PCP Internal Medicine; Visit Provider Nurse Practitioner Family
DX: N40.0 Benign prostatic hyperplasia without lower urinary tract symptoms (principal); R31.29 Other microscopic hematuria
CPT/HCPCS: 76857

== ENCOUNTER 2022-12-02 06:56 | Outpatient (REF) | payer OTHER, SELFPAY ==
[2022-12-02 08:30] LABS: PSA,Total (Free>4and<10) 0.43 ng/mL (0.00-4.00)
== END 2022-12-02 06:57 | disposition home or self-care (01) ==
LOC: HO.LAB 06:56
PROVIDERS: PCP Internal Medicine; Visit Provider Nurse Practitioner Family
DX: N40.0 Benign prostatic hyperplasia without lower urinary tract symptoms (principal); R31.29 Other microscopic hematuria
CPT/HCPCS: 36415; 84153

== ENCOUNTER → 2022-12-03 10:24 | Outpatient (BNVA) | payer OTHER, SELFPAY | PROVIDERS: PCP Internal Medicine; Visit Provider Nurse Practitioner Family | DX: N40.0 Benign prostatic hyperplasia without lower urinary tract symptoms (principal); N52.9 Male erectile dysfunction, unspecified; R31.29 Other microscopic hematuria | CPT/HCPCS: 51798; 99212 ==

== ENCOUNTER 2023-06-25 09:57 | Outpatient (REF) | payer OTHER, SELFPAY ==
--- NOTE | ~2023-06-25 | XR_ITS ---
EXAMINATION: XR CERVICAL SPINE CLINICAL INFORMATION: Neck pain COMPARISON: None available. TECHNIQUE: 5 views of the cervical spine FINDINGS: C7 vertebral body partially obscured by overlying soft tissues. Mild spondylosis in the lower cervical spine. Cervical disc space heights are preserved. Alignment maintained. XR/XR cervical spine 5V IMPRESSION: Mild spondylosis in the lower cervical spine.
== END 2023-06-25 09:58 | disposition home or self-care (01) ==
LOC: HO.XRAY 09:57
PROVIDERS: PCP Internal Medicine; Visit Provider Internal Medicine
DX: M54.2 Cervicalgia (principal)
CPT/HCPCS: 72050

== ENCOUNTER 2023-11-24 09:25 | Outpatient (REF) | payer OTHER, SELFPAY ==
--- NOTE | ~2023-11-24 | US_ITS ---
EXAMINATION: US COMPLETE ABDOMEN WITH LIVER ELASTOGRAPHY CLINICAL INFORMATION: Nonalcoholic steatohepatitis. COMPARISON: Abdominal ultrasound with elastography dated 11/03/2022. TECHNIQUE: Real-time imaging of the abdominal viscera. Noninvasive ultrasound liver fibrosis assessment is performed using Richardson ElastPQ point quantification shear wave elastography (2D-SWE) with a C5-2 MHz transducer. Multiple elastography samples are obtained. FINDINGS: PANCREAS: Largely obscured by overlapping bowel gas. ABDOMINAL AORTA: The proximal, middle, and distal aortic segments are normal in caliber. INFERIOR VENA CAVA: Visualized portions are normal. LIVER: The liver demonstrates normal size, contour and echogenicity. No focal lesion or intrahepatic biliary duct dilatation. The right lobe measures 15.6 cm in length. The left lobe measures 11.5 cm in length. Portal flow is towards the liver (hepatopetal). Shear wave liver elastography median stiffness is 1.09 m/s (reference: normal median stiffness is 1.3 m/s or less). IQR/median stiffness to assess sampling precision is 0.06 (reference: good quality data set is IQR/median stiffness of 0.15 or less). GALLBLADDER: Normal. The gallbladder is physiologically distended without evidence of stones, sludge, polyps, wall thickening or pericholecystic fluid. COMMON BILE DUCT: Borderline increased in caliber, measuring 0.8 cm in diameter. RIGHT KIDNEY: At the lower pole, a 7 mm benign, simple cyst is seen, for which no imaging follow-up is recommended. No hydronephrosis. No renal calculi or focal parenchymal lesions. The kidney measures 12.2 cm in maximum dimension. LEFT KIDNEY: Normal. No hydronephrosis. No renal calculi or focal parenchymal lesions. The kidney measures 12.5 cm in maximum dimension. SPLEEN: Normal. The spleen measures 11.0 cm in maximum dimension. FREE FLUID: None. US/US abdomen comp w elastography IMPRESSION: 1. There is generalized increase in hepatic echotexture, consistent with fatty infiltration or hepatocellular disease. Please correlate clinically. No focal hepatic mass or intrahepatic biliary dilatation is seen. 2. Liver elastography: Measurements are consistent with a high probability of normal liver stiffness. When compared with prior exam, there is a statistically significant decrease in liver stiffness (decrease at least 10%). 3. There is borderline enlargement of the common bile duct. No intrahepatic biliary ductal dilatation is seen. 4. Technically limited examination, in particular of the pancreas. REFERENCE: Society of Radiologists in Ultrasound Liver Stiffness Thresholds (2020): LIVER STIFFNESS THRESHOLDS: *Liver Stiffness equal or less than 1.3 m/s: High probability of being normal. *Liver Stiffness less than 1.7 m/s: In the absence of other known clinical signs, rules out compensated advanced chronic liver disease. *Liver Stiffness 1.7-2.1 m/s: Suggestive of compensated advanced chronic liver disease but need further test for confirmation. *Liver Stiffness over 2.1 m/s: Rules in compensated advanced chronic liver disease. *Liver Stiffness over 2.4 m/s: Suggestive of clinically significant portal hypertension. QUALITY OF DATA SET: *IQR/Median value equal or less than 0.15 implies a quality data set. *IQR/Median value over 0.15 implies a poor quality data set. SIGNIFICANT CHANGE FROM PRIOR EXAM: Significant change if liver stiffness measurement is 10% or greater from prior exam. OTHER CONSIDERATIONS: The stage of liver fibrosis may be overestimated in the setting of acute hepatitis, liver inflammation, elevated liver function tests, hepatic vascular congestion, obstructive cholestasis, non-fasting state, and infiltrative diseases such as amyloidosis and lymphoma. In some patients with NAFLD, the liver stiffness thresholds for compensated advanced chronic liver disease may be lower. In causes other than viral hepatitis and NAFLD, liver stiffness thresholds are not well established.
== END 2023-11-24 09:26 | disposition home or self-care (01) ==
LOC: HO.US 09:25
PROVIDERS: PCP Internal Medicine; Visit Provider Internal Medicine
DX: R74.8 Abnormal levels of other serum enzymes (principal); K75.81 Nonalcoholic steatohepatitis (NASH)
CPT/HCPCS: 76700; 76981

== ENCOUNTER 2023-12-03 08:01 | Outpatient (REF) | payer OTHER, SELFPAY ==
[2023-12-03 09:30] LABS: Prostate Specific Antigen 0.37 ng/mL (<0.05-4.0)
== END 2023-12-03 08:02 | disposition home or self-care (01) ==
LOC: HO.LAB 08:01
PROVIDERS: PCP Internal Medicine; Visit Provider Nurse Practitioner Family
DX: Z12.5 Encounter for screening for malignant neoplasm of prostate (principal); N40.0 Benign prostatic hyperplasia without lower urinary tract symptoms
CPT/HCPCS: 36415; 84153

== ENCOUNTER 2023-12-04 09:24 | Outpatient (REF) | payer OTHER, SELFPAY ==
[2023-12-04 16:41] LABS: Urine Cytology See Pathology rpt
== END 2023-12-04 09:25 | disposition home or self-care (01) ==
LOC: HO.LNP 09:24
PROVIDERS: Visit Provider Nurse Practitioner Family
DX: R31.29 Other microscopic hematuria (principal); N52.9 Male erectile dysfunction, unspecified; N40.0 Benign prostatic hyperplasia without lower urinary tract symptoms
CPT/HCPCS: 51798; 81003; 88112; 99212

== ENCOUNTER 2023-12-04 09:24 | Outpatient (AMB) | payer OTHER, SELFPAY ==
--- NOTE | 2023-12-04 09:32 | MHC.OFFVIS ---
Intake Intake Visit Reasons: 1 yr follow up pvr / labs Intake Note: Patient is present for follow up BPH/microscopic hematuria PSA: 0.37 Urology Medications: sildenafil, tadalafil Blood Thinner: none PVR: 24ml's Photo Intern Required: No Accompanied by: Self / Same As Patient Allergies No Known Allergies Allergy (Verified 12/04/23 10:08) Medication List - Last Reconciled 12/04/23 by QUEENIE LoweryP- bupropion HCl XL 150 mg PO QAM cyclobenzaprine 10 mg PO BEDTIME eszopiclone 3 mg PO BEDTIME PRN lorazepam 1 - 2 mg PO TID PRN losartan 100 mg PO DAILY metformin 1,000 mg PO BID metoprolol succinate ER 100 mg PO DAILY olmesartan-hydrochlorothiazide 40-25 mg 1 tab PO DAILY omeprazole 20 mg PO DAILY paroxetine HCl 40 mg PO DAILY risperidone 4 mg PO QPM rosuvastatin 20 mg PO BEDTIME sildenafil 100 mg PO DAILY tadalafil (Cialis) 5 mg PO DAILY 90 days ursodiol 1,000 mg PO BID HPI HPI Comments History of Present Illness Details Yannick is a pleasant 48 year old male patient of Dr. Gomez. He has a past medical history of obstructive sleep apnea, depression, bipolar disorder, hypercholesteremia, GERD, diabetes, obesity, and hypertension. He presents to the office today for follow-up of his ED and microscopic hematuria. In discussion with the patient today reports to be doing and feeling well. He reports noting significant improvement in maintaining and obtaining erections with 5 mg of Cialis daily. Recent PSA results reviewed with the patient today: 12/21 0.4, 12/22 0.4 Previous workup has included a bladder ultrasound noting bilateral ureteral jets are demonstrated. Pre void bladder room is 165 mL. Postvoid bladder volume is 3 mL. Prostate volume 27 mL. He otherwise denies any other issues and or concerns. When asked patient denies urinary frequency, urinary urgency, urinary incontinence, hematuria, dysuria, flank pain, fever and or chills. In office UA with microscopic hematuria otherwise WNL.Cytology 10/23 Negative for high-grade urothelial carcinoma. When asked patient he denies previous smoking history and or workplace chemical exposure. Discussed at length potential causes for microscopic hematuria. Discussed reasons for blood in the urine may include but are not limited to kidney stones, cancer in the urinary tract, BPH, kidney stone disease or inflammatory conditions of the urinary tract. I have discussed workup to include cystoscopy evaluation. He otherwise offers no other issues or concerns at this time. [facility] Medical History NEVAEH (obstructive sleep apnea) Depression Bipolar disorder Elevated cholesterol On beta krishna at home Hiatal hernia GERD (gastroesophageal reflux disease) Diabetes Spinal stenosis of lumbar region with neurogenic claudication Failed spinal cord stimulator Disc degeneration, lumbar Lipoma of chest wall Obesity Hypertension Surgical History History of esophagogastroduodenoscopy (EGD) Hx of colonoscopy H/O left knee surgery S/P insertion of spinal cord stimulator Family History Father HTN (hypertension) Mother HTN (hypertension) Social History Alcohol intake: never Patient Tobacco Use Status: Never used Tobacco Review of Systems Eyes Reports no additional complaints ENT Reports no additional complaints Card Reports as per HPI Resp Reports as per HPI GI Reports as per HPI Reports as per HPI Musc Reports as per HPI Neuro Reports no additional complaints Psych Reports as per [facility] Endo Reports as per HPI Johnathon/Lymph Reports no additional complaints Aller/Immun Reports no additional complaints Physical Exam Const General: cooperative, healthy appearing, comfortable, no acute distress, well developed, alert and awake Nutritional Appearance: overweight Orientation/consciousness: patient oriented x3 Limitations: no limitations HEENT Head: Yes normal to inspection, Yes normocephalic and Yes atraumatic Ears: hearing grossly normal bilaterally Eyes General: appearance normal, both eyes and all related structures Neck Neck: Yes normal visual inspection and Yes trachea midline Chest Chest palpation & inspection: normal inspection of the chest Resp Effort & Inspection: normal respiratory effort and able to speak in complete sentences Cardio Rate: regular rate GI Inspection: Yes normal to inspection General: Yes no CVA tenderness and Yes deferred Back/Spine/Pelvis Back: no CVA tenderness Skin General skin exam: no rashes or lesions noted Neuro General: patient oriented x3 Extrem General: Yes normal to inspection Psych Appearance: grossly normal and well kempt Mental Status: mental status grossly normal Speech and movement: Normal speech and movement present and Clear speech present Affect: normal affect Attitude: cooperative Thought process: Normal thought process present Thought content: Normal thought content present Insight: Good insight present (Psych) Judgement: Good judgement present (Psych) Office Procedures Post Void Residual Post Residual Void Post Void Residual (PVR): [id number] Void Residual by ultrasound Results AMB Urinalysis, Automated UA Leukoctes 0 Carlos/uL Last Edit by Poonam Trevino on 12/04/23 10:00 UA Nitrite Negative Last Edit by Poonam Trevino on 12/04/23 10:00 UA Urobilinogen 0.2 mg/dL Last Edit by [facility] RingDNAjessica on 12/04/23 10:00 UA Protein 15 mg/dL Last Edit by [email or web address] on 12/04/23 10:00 UA pH 6.5 Last Edit by Nallatechlata Trevino on 12/04/23 10:00 UA Blood 25 Gutierrez/uL Last Edit by Nallatechlata Trevino on 12/04/23 10:00 UA Specific [place] 1.015 Last Edit by Poonam Trevino on 12/04/23 10:00 UA Ketone Negative Last Edit by Nallatechlata RingDNAjessica on 12/04/23 10:00 UA Bilirubin 0 mg/dL Last Edit by [email or web address] on 12/04/23 10:00 UA Glucose 0 mg/dL Last Edit by [facility] Trevino on 12/04/23 10:00 Results Reviewed Results Reviewed: Laboratory Last Values Urine pH (Auto) 6.5 12/04/23 09:39 Specific [place] (Auto) 1.015 12/04/23 09:39 Urine Protein (Auto) 15 mg/dL 12/04/23 09:39 Glucose (UA)(Auto) 0 mg/dL 12/04/23 09:39 Urine Ketones (Auto) Negative 12/04/23 09:39 Urine Blood (Auto) 25 Gutierrez/uL 12/04/23 09:39 Urine Nitrite (Auto) Negative 12/04/23 09:39 Urine Bilirubin (Auto) 0 mg/dL 12/04/23 09:39 Urine Urobilinogen (Auto) 0.2 mg/dL 12/04/23 09:39 Leukocyte Esterase (Auto) 0 Carlos/uL 12/04/23 09:39 Assessment & Plan Assessment & Plan (1) Erectile dysfunction: Code(s): N52.9 - Male erectile dysfunction, unspecified (2) BPH (benign prostatic hyperplasia): Code(s): N40.0 - Benign prostatic hyperplasia without lower urinary tract symptoms (3) Microscopic hematuria: Code(s): R31.29 - Other microscopic hematuria Plan In office urinalysis results reviewed with the patient today; as noted above; will send for urine cytology. Discussed and stressed the importance of lifestyle modifications to assist with erectile dysfunction. Continue 5 mg of Cialis daily; refill provided. Discussed at length importance of managing diabetes for erectile dysfunction and overall health and well-being. Recent PSA results reviewed with the patient today; as noted above. Discussed at length potential causes for microscopic hematuria as well as further workup; risks and benefits of further treatment options were discussed; will continue with surveillance monitoring at this time per patient request. He otherwise offers no bothersome urinary issues or concerns. He is happy with his current voiding parameters. Follow-up in 1 year with lab to be completed prior; or sooner with any issues, concerns, and or questions. Orders: Orders AMB Urinalysis Automated Today Z13.9 - Encounter for screening, unspecified AMB Post Void Residual by ultrasound Today N40.0 - Benign prostatic hyperplasia without lower urinary tract symptoms Medications: Refilled tadalafil (Cialis) BRYAN [facility] [address] [id number] 5 mg PO DAILY 90 days 90 tabs 3RF Patient Instructions: The patient had an opportunity to ask questions regarding the treatment plan. All questions were answered. Physical exam, labs, and imaging were discussed and reviewed in detail. As well as risks, benefits, and discussion of treatment choices. No major barriers to understanding were identified. The patient expressed understanding and agreement with the above treatment plan. The patient was made aware they should contact our office by phone for worsening of their current condition, the appearance of new symptoms, or with any questions or concerns. Compliance is encouraged with any medications and follow up testing that is ordered. It is a privilege to be allowed the opportunity to participate in? your urological care.? Again, if you have any questions or concerns If you have any questions or concerns please do not hesitate to contact me. The office is [phone]. This note is constructed using voice recognition software. While every effort has been made to ensure accuracy field irrigation worker errors may have been included. Yours sincerely, LEANNA Lowery-BC Coding Level of Care Code Est Pt Level 3 (56621) Diagnoses Erectile dysfunction N52.9 BPH (benign prostatic hyperplasia) N40.0 Microscopic hematuria R31.29 CPT Codes Post Residual Void - PVR CPT Code: 50377-Voca Void Residual by ultrasound ([id number])
== END 2023-12-04 10:09 | disposition home or self-care (01) ==
PROVIDERS: PCP Internal Medicine; Visit Provider Nurse Practitioner Family
DX: N52.9 Male erectile dysfunction, unspecified (principal); N40.0 Benign prostatic hyperplasia without lower urinary tract symptoms; R31.29 Other microscopic hematuria; Z13.9 Encounter for screening, unspecified
CPT/HCPCS: 99213

== ENCOUNTER → 2024-01-26 13:59 | Outpatient (RCR) | payer OTHER, SELFPAY | END | disposition home or self-care (01) | LOC: HO.OT 08-08 07:41 | PROVIDERS: Visit Provider Student in an Organized Health Care Education/Training Program | DX: M25.522 Pain in left elbow (principal); M25.521 Pain in right elbow | CPT/HCPCS: 97035; 97140; 97165 ==

== ENCOUNTER 2024-11-17 08:20 | Outpatient (REF) | payer OTHER, SELFPAY ==
--- NOTE | ~2024-11-17 | US_ITS ---
EXAMINATION: US ABDOMEN COMPLETE WITH LIVER ELASTOGRAPHY HISTORY: FATTY LIVER, ELEVATED LFTS TECHNIQUE: Real-time grayscale ultrasound imaging of the abdomen was performed and images were reviewed. COMPARISON: Comparison is made with the prior examination dated 11/24/2023. FINDINGS: Liver: The right lobe of the liver measures 16.6 cm in size. The left lobe of the liver measures 10.6 cm in size. The liver demonstrates increased echotexture, consistent with steatosis. No focal mass or intrahepatic biliary ductal dilatation is identified. There is normal hepatopedal flow in the portal vein. Ultrasound elastography of the liver was performed with 10 separate measurements of the liver parenchyma with the patient in the supine position. Measurements were obtained approximately 2 cm below Bee's capsule and perpendicular to the capsule. Images are of satisfactory quality. The median shear wave velocity is 1.24 m/s (previously 1.09 m/s). The interquartile range/median (IQR/median) is 0.15. Gallbladder and biliary tree: The gallbladder is unremarkable, without evidence of calculi, wall thickening, or pericholecystic fluid. There is no sonographic Kurtz sign. The common bile duct is normal in caliber measuring 2 mm. Kidneys: The right kidney measures 12.5 cm in length and demonstrates a septated lower pole cyst measuring 8 x 7 x 6 mm. There is a 3 mm nonobstructing calculus at the lower pole. There is no hydronephrosis. The left kidney measures 12.9 cm in length and is unremarkable. Pancreas: The pancreatic head, neck, and body are unremarkable. The pancreatic tail is obscured by bowel gas. Spleen: The spleen is normal in size and contour, measuring 10.5 cm in length. Abdominal aorta and inferior vena cava: The visualized portions of the abdominal aorta and inferior vena cava are normal in caliber. There is no free fluid in the abdomen. US/US abdomen comp w elastography IMPRESSION: Hepatomegaly and hepatic steatosis. The median shear wave velocity in the liver is 1.24 m/s, corresponding to a median liver stiffness of 4.79 kPa. The IQR/median value is 0.15. This is indicative of a poor quality data set, and the estimated liver stiffness may be unreliable. Findings are indicative of a normal elastography value with a low likelihood of severe fibrosis or cirrhosis. REFERENCE: Society of Radiologists in Ultrasound Liver Stiffness Thresholds (2020): LIVER STIFFNESS THRESHOLDS: *Shear wave velocity less than 1.3 m/s (Liver Stiffness equal or less than 5 kPa): High probability of being normal. *Shear wave velocity less than 1.7 m/s (Liver Stiffness less than 9 kPa): In the absence of other known clinical signs, rules out compensated advanced chronic liver disease. *Shear wave velocity between 1.7-2.1 m/s (Liver Stiffness 9-13 kPa): Suggestive of compensated advanced chronic liver disease but need further test for confirmation. *Shear wave velocity between 2.1-2.4 m/s (Liver Stiffness 13-17 kPa): Rules in compensated advanced chronic liver disease. *Shear wave velocity greater than 2.4 m/s (Liver Stiffness over 17 kPa): Suggestive of clinically significant portal hypertension. QUALITY OF DATA SET: *IQR/Median value equal or less than 0.15 implies a quality data set. *IQR/Median value over 0.15 implies a poor quality data set. SIGNIFICANT CHANGE FROM PRIOR EXAM: Significant change if liver stiffness measurement is 10% or greater from prior exam. OTHER CONSIDERATIONS: The stage of liver fibrosis may be overestimated in the setting of acute hepatitis, liver inflammation, elevated liver function tests, hepatic vascular congestion, obstructive cholestasis, non-fasting state, and infiltrative diseases such as amyloidosis and lymphoma. In some patients with NAFLD, the liver stiffness thresholds for compensated advanced chronic liver disease may be lower. In causes other than viral hepatitis and NAFLD, liver stiffness thresholds are not well established. Electronically signed by: Yony Rose MD 11/17/2024 09:32 AM EDT
--- OUTSIDE RECORDS SUMMARY | 2024-11-17 08:31 | XMS_ITS ---
Author Organization [facility] Address [address] [place] [id number] Care Team Providers Care Evp Name Role Phone Dixie Gomez Primary Care Provider Unavailab Yony Chaidez [phone] REASON FOR VISIT ursodiol refill Medications Medication SIG (Take, Route, Fr equency, Duration) Notes Start Date End Date Status Ursodiol 500 MG 2 Orally Twice a day for 30 day(s) 10/29/2023 Active Encounters Encounter Location Date Provider Diagnosis [facility] [address] [place] [phone] 10/28/2023 Yony Licona Plan Of Treatment Medication Medication Name Sig Start Date Stop Date Notes Ursodiol 500 MG 2 Orally Twice a day for 30 day(s) 024 Next Appt Details Provider Name:Yony Licona , 10/19/2025 09:00:00 AM, [address], [address], [place], [address], Progress Notes * PARVIN AMAYA LDOB:1975 ( 48 yo M)Acc No.[id number]:10/28/2023 Patient:?JOSE LUIS PARVIN Mendoza :1975???Age:48 Y???Sex:Male Address:[address] [place] [address], [place] [address] * Refills? Start Ursodiol Tablet, 500 MG, Orally, 120, 2, Twice a day, 30 day(s), Refills=11 * true * Date:? Generated for Printi ng/Marcela/Renaldoitting on:?11/17/2024 08:31 AM EDT
--- OUTSIDE RECORDS SUMMARY | 2024-11-17 08:31 | XMS_ITS ---
Author Organization [facility] Address [address] [place] [address] Care Team Providers Care Transformer Assembler Name Role Phone Dixie Gomez Primary Care Provider Unavailab Yony Chaidez [phone] REASON FOR VISIT abdominal pain Medications Medication SIG (Take, Route, Fr equency, Duration) Notes Start Date End Date Status Dicyclomine HCl 10 MG take 1 or 2 Orally Every 6 hours as needed for rectal pain for 30 day(s) 10/15/2023 Active Encounters Encounter Location Date Provider Diagnosis [facility] [address] [place] [address] 08/02/2024 Yony Licona Rectal spasm K59.4 Assessments Encounter Date Diagnosis (ICD Code) Assessment Notes Treatment Notes Treatment Clinical Notes Section Notes 08/02/2024 Rectal spasm (ICD-10 - K59.4) Plan Of Treatment Medication Medication Name Sig Start Date Stop Date Notes Dicyclomine HCl 10 MG take 1 or 2 Orally Every 6 hours as needed for rectal pain for 30 day(s) 10/15/2023 Next Appt Details Provider Name:Yony Licona , 10/19/2025 09:00:00 AM, [address], [address], [place], [address], Progress Notes * PARVIN AMAYA LDOB:1975 ( 49 yo M)Acc No.[id number]:08/02/2024 Patient:?PARVIN AMAYA :1975???Age:49 Y???Sex:Male Address:[address] [place] [address], [place], [address] * Refills? Refill Dicyclomine HCl Capsule, 10 MG, Orally, 10, take 1 or 2, Every 6 hours as needed for rectal pain, 30 day(s), Refills=3 * true * Date:? Generated for Saúl foster/Marcela/Renaldoitting on:?11/17/2024 08:30 AM EDT
--- OUTSIDE RECORDS SUMMARY | 2024-11-17 08:31 | XMS_ITS ---
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 bowel sounds, no guarding or rigidity, no guarding or rigidity, no masses palpable, soft, nontender, nondistended NEUROLOGIC: alert and oriented SKIN: nonjaundiced, no spi wiflrid angiomata EXTREMITIES: no edema, no palmar erythem PERIPHERAL PULSES: BACK: BREASTS: MUSCULOSKELETAL: MALE GENITOURINARY: LYMPH NODES: RECTAL EXAM: FEMALE GENITOURINARY: ORAL CAVITY: mucosa moist
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
--- OUTSIDE RECORDS SUMMARY | 2024-11-17 08:31 | XMS_ITS | Clinical Summary ---
Author Organization [address] Address [address] [place] [phone] Phone Care Team Providers Care Supervisor Hardboard Name Role Phone Dixie Gomez MD Primary Care Provider [phone] Social History Tobacco Use Types Packs/Day Years Used Date Smoking Tobacco: Never Assessed Sex and Gender Information Value Date Recorded Sex Assigned at Not on file Legal Sex Male 3:32 PM EST Gender Identity Not on file Sexual Orientation Not on file Plan of Treatment Health Maintenance Due Date Last Done Comments Diabetes: Annual Foot Exam 01/31/1984 Diabetes: Annual Retina Eye Exam 01/31/1984 DTaP,Tdap,and Td Vaccines (1 - Tdap) 1993 Hepatitis B Vaccines (1 of 3 - 19+ 3-dose series) 1993 Pneumococcal Vaccine: 50+ Years (1 of 2 - PCV) 1993 Pneumococcal Vaccine: Pediatrics (0 to 5 Years) and At-Risk Patients (6 to 64 Years) (1 of 2 - PCV) 1993 Colorectal Cancer Screening: Colonoscopy 07/30/2022 Depression Screening 07/30/2022 HIV Screening 07/30/2022 Hepatitis C Screening 07/30/2022 Social Influencers of Health Screening 07/30/2022 Zoster Vaccines (1 of 2) 01/31/2024 COVID-19 Vaccine ( season) 2024 12/11/2021, 10/01/2021, 02/13/2021, Additional history exists Influenza Vaccine (#1) 2024 Diabetes: Annual Urine Albumin-Creatinine Ratio (uACR) 09/09/2024 Diabetes: Blood Sugar Control Test (HGBA1C) 03/09/2025 09/09/2024 Diabetes: Annual GFR (Glomerular Filtration Rate) 09/09/2025 09/09/2024 Cholesterol Screening (Lipid Panel) 09/09/2029 09/09/2024, 09/12/2017 HIB Vaccines Aged Out No longer eligi ble based on patient's age to complete this topic HPV Vaccines Aged Out No longer eligi ble based on patient's age to complete this topic Hepatitis A Vaccines Aged Out No long er eligible based on patient's age to complete this topic IPV Vaccines Aged Out No longer eligi ble based on patient's age to complete this topic MMR Vaccines Aged Out No longer eligi ble based on patient's age to complete this topic Meningococcal ACWY Vaccine Aged Out N o longer eligible based on patient's age to complete this topic Meningococcal B Vacine Aged Out No lo nger eligible based on patient's age to complete this topic RSV Immunization Patients Under 20 months Aged Out No longer eligible based on patient's age to complete this topic Varicella Vaccines Aged Out No longer eligible based on patient's age to complete this topic Procedures Procedure Name Priority Date/Time Associated Diagnosis Comments FOLATE Routine 09/09/2024 8:54 AM EST Diabetes mellitus (CMS/HCC) Mixed hyperlipidemia Major depressive disorder, single episode in full remission (CMS/HCC) Obstructive sleep apnea (adult) (pediatric) Left knee pain VITAMIN B12 Routine 09/09/2024 8:54 AM EST Diabetes mellitus (CMS/HCC) Mixed hyperlipidemia Major depressive disorder, single episode in full remission (CMS/HCC) Obstructive sleep apnea (adult) (pediatric) Left knee pain LIPID PANEL WITH REFLEX TO DIRECT LDL Routine 09/09/2024 8:54 AM EST Diabetes mellitus (CMS/HCC) Mixed hyperlipidemia Major depressive disorder, single episode in full remission (CMS/HCC) Obstructive sleep apnea (adult) (pediatric) Left knee pain HEMOGLOBIN A1C Routine 09/09/2024 8:54 AM EST Diabetes mellitus (CMS/HCC) Mixed hyperlipidemia Major depressive disorder, single episode in full remission (CMS/HCC) Obstructive sleep apnea (adult) (pediatric) Left knee pain COMPREHENSIVE METABOLIC PANEL Routine 09/09/2024 8:54 AM EST Diabetes mellitus (CMS/HCC) Mixed hyperlipidemia Major depressive disorder, single episode in full remission (CMS/HCC) Obstructive sleep apnea (adult) (pediatric) Left knee pain from Last 3 Months Results * (ABNORMAL) Lipid panel with reflex to direct LDL (09/09/2024 8:54 AM EST) Cholesterol 102 0 - 200 mg/dL LAB CHEMISTRY METHOD 09/09/2024 10:33 AM [facility] Triglycerides 68 0 - 150 mg/dL LAB CHEMISTRY METHOD 09/09/2024 10:33 AM [facility] HDL 39(L) >=40 mg/dL LAB CHEMISTRY METHOD 09/09/2024 10:33 AM [facility] LDL Calculated 49 0 - 100 mg/dL LAB CHEMISTRY METHOD 09/09/2024 10:33 AM [facility] VLDL Cholesterol Freddy 13.6 mg/dL LAB CHEMISTRY METHOD 09/09/2024 10:33 AM [facility] Non HDL Chol. (LDL+VLDL) 63 <145 mg/dL LAB CHEMISTRY METHOD 09/09/2024 10:33 AM [facility] Chol/HDL Ratio 2.6 0.0 - 4.4 LAB CHEMISTRY METHOD 09/09/2024 10:33 AM [facility] Blood Venous blood specimen / Unknown Venipuncture / Unknown 09/09/2024 8:54 AM EST 09/09/2024 9:30 AM EST us Dixie Gomez MD LAB BLOOD ORDERABLES Final Re sult [facility] [address] [place] [address], * Hemoglobin A1c (09/09/2024 8:54 AM EST) Hemoglobin A1C 5.5 <6.5 % LAB CHEMISTRY METHOD 09/09/2024 12:49 PM EST [facility] Mean Bld Glu Estim. 111 mg/dL LAB CHEMISTRY METHOD 09/09/2024 12:49 PM EST [facility] Blood Venous blood specimen / Unknown Venipuncture / Unknown 09/09/2024 8:54 AM EST 09/09/2024 9:30 AM EST us Dixie Gomez MD LAB BLOOD ORDERABLES Final Re sult Performing Organization Address City/[facility]/ZIP Co de Phone Number [facility] [address] [place] [address], [place] [phone] * Folate (09/09/2024 8:54 AM EST) Folate 12.5 2.8 - 17.0 ng/ml LAB CHEMISTRY METHOD 09/09/2024 10:33 AM EST [facility] Blood Venous blood specimen / Unknown Venipuncture / Unknown 09/09/2024 8:54 AM EST 09/09/2024 9:30 AM EST us Dixie Gomez MD LAB BLOOD ORDERABLES Final Re sult Performing Organization Address [facility]/ZIP Co de Phone Number [facility] [address] [place] [address], [place] [phone] * Vitamin B12 (09/09/2024 8:54 AM EST) Vitamin B-12 734 250 - 900 pcg/mL LAB CHEMISTRY METHOD 09/09/2024 10:33 AM EST [facility] Blood Venous blood specimen / Unknown Venipuncture / Unknown 09/09/2024 8:54 AM EST 09/09/2024 9:30 AM EST us Dixie Gomez MD LAB BLOOD ORDERABLES Final Re sult Performing Organization Address City/[facility]/ZIP Co de Phone Number [facility] [address] [place] [address], [place] [phone] * Comprehensive metabolic panel (09/09/2024 8:54 AM EST) Sodium 140 133 - 145 mmol/L LAB CHEMISTRY METHOD 09/09/2024 10:33 AM [facility] Potassium 4.0 3.5 - 5.5 mmol/L LAB CHEMISTRY METHOD 09/09/2024 10:33 AM [facility] Chloride 107 96 - 110 mmol/L LAB CHEMISTRY METHOD 09/09/2024 10:33 AM [facility] CO2 29 21 - 32 mmol/L LAB CHEMISTRY METHOD 09/09/2024 10:33 AM [facility] Anion Gap 4 3 - 11 LAB CHEMISTRY METHOD 09/09/2024 10:33 AM [facility] Glucose 96 70 - 100 mg/dL LAB CHEMISTRY METHOD 09/09/2024 10:33 AM [facility] BUN 13 5 - 25 mg/dL LAB CHEMISTRY METHOD 09/09/2024 10:33 AM [facility] Creatinine 0.91 0.70 - 1.30 mg/dL LAB CHEMISTRY METHOD 09/09/2024 10:33 AM [facility] eGFR 103 >=60 mL/min/1. 73m2 LAB CHEMISTRY METHOD 09/09/2024 10:33 AM [facility] Comment:Calculation based on the??Chronic Kidney Disease Epidemiology Collaboration (CKD-EPI) equation refit??without adjustment for race. BUN/Creatinine Ratio 14.3 LAB CHEMISTRY METHOD 09/09/2024 10:33 AM [facility] Calcium 8.5 8.5 - 10.5 mg/dL LAB CHEMISTRY METHOD 09/09/2024 10:33 AM [facility] AST (SGOT) 12 10 - 42 unit/L LAB CHEMISTRY METHOD 09/09/2024 10:33 AM [facility] ALT (SGPT) 41 10 - 60 unit/L LAB CHEMISTRY METHOD 09/09/2024 10:33 AM EST [facility] Alkaline Phosphatase 57 42 - 121 unit/L LAB CHEMISTRY METHOD 09/09/2024 10:33 AM EST [facility] Total Protein 6.9 6.0 - 8.0 g/dL LAB CHEMISTRY METHOD 09/09/2024 10:33 AM [facility] Albumin 3.5 3.2 - 5.0 g/dL LAB CHEMISTRY METHOD 09/09/2024 10:33 AM [facility] Total Bilirubin 0.7 0.0 - 1.4 mg/dL LAB CHEMISTRY METHOD 09/09/2024 10:33 AM [facility] Blood Venous blood specimen / Unknown Venipuncture / Unknown 09/09/2024 8:54 AM EST 09/09/2024 9:30 AM EST us Dixie Gomez MD LAB BLOOD ORDERABLES Final Re sult [facility] [address] [place] [address], [place] [phone] from Last 3 Months Insurance [facility] Care Teams Supervisor Hardboard Relationship Specialty Start Date End Date Dixie Gomez MD [address] [place] [address] [place] [address] PCP - General Internal Medicine 10/08/17
--- OUTSIDE RECORDS SUMMARY | 2024-11-17 08:31 | XMS_ITS | Continuity of Care Document ---
Author Organization [facility] [place] [facility] [place] [address] Address [address] [place] [address] Care Team Providers Care Lunch Truck Operator Name Role Phone PAULINOMARYFATOU CHIRAGTHALIA Primary Care Provider Assessment No assessment recorded. Plan of Treatment Reminders Order Date Submit Date Provider Last Modified By Organization Details Last Modified Time Details Appointments None record ed. Lab None record ed. Referral None record ed. Procedures None record ed. Surgeries None record ed. Imaging None record ed. Medication Orders None record ed. Patient TargetsNo targets recorded. Patient InstructionsNo instructions recorded. Reason for Referral None Reported. Problems Name Problem SNOMED Code Status Onset Date Resolution Date Notes Provider Name and Address Organization Details Recorded Time Pain of left knee joint 2180899170075 07 Active 2023 Julia Mcintosh i, PA-C [address], [place], [address], [facility] 10:11:31 Osteoarthri tis of left knee joint 4968494277627 09 Active 2024 Julia Carr PA-C [address], [place], [address], [facility] 17:49:52 Problem Notes None recorded. Procedures Surgical History Date Name Laterality Status Provider Name and Address Organization Details Recorded Time 07/11/2024 Sports Knee 4&1 completed Julia Bateman PA-C [address], [place], [address], [facility] 07/11/2024 11:32:53 Imaging Results None recorded. Procedure Notes None recorded. Medical Equipment None Reported. Allergies No known drug allergies Medications Name Sig Start Date Stop Date Status Note LastModified by Organization Details LastModified Time cyclobenzap rine 10 mg tablet TAKE 1 TABLET BY MOUTH AT BEDTIME active Not Available Not Available No t Available risperidone 4 mg tablet TAKE 1 TABLET BY MOUTH EVERY DAY IN THE EVENING active Not Available Not Available No t Available metoprolol succinate ER 100 mg tablet,exte nded release 24 hr TAKE 1 TABLET BY MOUTH EVERY DAY active Not Available Not Available No t Available sumatriptan 50 mg tablet TAKE 1 TABLET AT LEAST 2 HOURS BETWEEN DOSES NEEDED ORALLY ONCE A DAY 30 DAYS active Not Available Not Available No t Available erythromyci n 5 mg/gram (0.5 %) eye ointment APPLY 1/2 INCH RIBBON INTO LOWER LID OF LEFT EYE THREE TIMES A DAY active Not Available Not Available No t Available metformin 1,000 mg tablet TAKE 1 TABLET BY MOUTH TWICE A DAY active Not Available Not Available No t Available omeprazole 20 mg capsule,del ayed release TAKE 1 CAPSULE BY MOUTH EVERY DAY active Not Available Not Available No t Available aspirin 81 mg chewable tablet CHEW 1 TABLET BY MOUTH ONCE DAILY active Not Available Not Available No t Available diclofenac sodium 75 mg tablet,shimon yed release TAKE 1 TABLET BY MOUTH TWICE A DAY active Not Available Not Available No t Available paroxetine 40 mg tablet TAKE 1 TABLET BY MOUTH EVERY DAY active Not Available Not Available No t Available dicyclomine 10 mg capsule TAKE 1 OR 2 CAPSULES ORALLY EVERY 6 HOURS NEEDED FOR RECTAL PAIN X 30 DAY(S) active Not Available Not Available No t Available olmesartan 40 mg-hydrochl orothiazide 25 mg tablet TAKE 1 TABLET BY MOUTH EVERY DAY active Not Available Not Available No t Available rosuvastati n 20 mg tablet TAKE 1 TABLET BY MOUTH EVERY DAY active Not Available Not Available No t Available rosuvastati n 40 mg tablet TAKE 1 TABLET BY MOUTH EVERY DAY active Not Available Not Available No t Available bupropion HCl XL 150 mg 24 hr tablet, extended release TAKE 1 TABLET BY MOUTH EVERY DAY IN THE MORNING active Not Available Not Available No t Available tadalafil 5 mg tablet TAKE ONE TABLET BY MOUTH EVERY DAY active Not Available Not Available No t Available ursodiol 500 mg tablet TAKE 2 TABLETS BY MOUTH TWICE A DAY active Not Available Not Available No t Available eszopiclone 3 mg tablet TAKE 1 TABLET BY MOUTH EVERY DAY AT BEDTIME NEEDED FOR SLEEP active Not Available Not Available No t Available tadalafil Tadalafil 5MG Tablet 07/11 completed Statu s: 'Curr ent'; Not Available Not Available Not Available oxycodone HCl-oxycodo ne-ASA as directed 1-2 TABLETS EVERY 4-[address] WHILE TAKING THIS MEDICATIO N 07/11 completed Statu s: 'Curr ent'; Not Available Not Available Not Available Vitals Date Recorded Body height Body mass index (BMI) Body weight Provider Name and Address Organization Details Last Updated DateTime 11/02/2024 182.88 cm 38 kg/m2 615460.86 g Terri Davis [facility] 11/02/2024 10:27:06 Social History Question Answer Notes LastModified by Organizat ion Details LastModified Time Tobacco Smoking Status Never Smoker MACARIO yoder [facility] 07/11/2024 10:19:20 What Is Your Level Of Alcohol Consumption? None Information not available 07/11/2024 What Is Your Relationship Status? Information not available 07/11/2024 Do You Use Any Illicit Or Recreational Drugs? No Information not available 07/11/2024 Do You Or Have You Ever Used Any Other Forms Of Tobacco Or Nicotine? No Information not available 07/11/2024 Sex: Unknown Functional Status None recorded. Mental Status None recorded. Family History Nothing Reported. Medical History Condition Response Anxiety/Depression Y Arthritis Y Headaches Y Cholesterol Y Diabetes Y Sleep Apnea Y Hypertension Y Past Encounters Encounter ID Performer Location Encounter Start Date Encounter Closed Date Diagnosis/Indication Diagnosis SNOMED-CT Code Diagnosis ICD10 Code Diagnosis Note [id number] [facility] 2nd [address] [place] [address] 11/02/2024 09:50:00 11/02/2024 10:42:26 Osteoarthritis of left knee joint [id number] 55275 M17.12 Health Concerns Section Related Observation LastModified by Organization Detai ls LastModified Time None Recorded Concern Status LastModified by Organization Details LastModified Time None Recorded Payers Encounter Date Sequence Insurance Name Policy Number Policy Roblero Covered Member ID Roblero Member ID Guarantor Name 11/02/2024 1 [facility] NET PLAN (MEDICAID HMO) [id number] Yannick Hernandez [id number] Yannick Hernandez Notes Date Note Type Note Provider Name and Address Organization Details Recorded Time 11/02/2024 text/html I am seeing the patient today under the supervision of {{Zoey Burton* [facility] who was available but who did not see the patient. HPI:Patient presents today regarding their {{Left* Right Bilater al}} knee. No new injury. History of left knee arthroscopy with partial medial and lateral menisectomy Dr. Garcia 2020 found to have grade 2 patella, grade 2 medial compartment, grade 2-3 lateral compartment. Denies mechanical catching or locking symptoms. Intermittent swelling noted. Last cortisone injection left knee 07-11-2024 provided excellent relief. Patient is not having any pain today. Past family, medical, social history and review of systems has been reviewed, updated and is located in the patient? s chart. PHYS EXAM:The patient is well appearing and in no apparent distress. Alert and oriented x3. Gait is symmetric. Examination of the {{Left* Right Bilater al}} knee reveals no evidence of any edema, erythema, or warmth. Range of motion of the knee 0-120 with mild discomfort at the end ranges. Mild effusion. Patellofemoral crepitus is noted. Calf is supple and nontender. Neurovascularly intact distally. X-RAYS:Previous 4v x-rays of the left knee reviewed at [facility] today demonstrates: mild medial compartment space narrowing bilaterally, mild patellofemoral space narrowing lateral patellar tilt and early lateral facet wear. Impression:{{Left* Ri ght Bilateral}} Knee osteoarthritis Plan:We discussed the role of conservative management including medications, physical therapy, injection and bracing. Discussed definitive treatment would include treatment arthroplasty in the future. They will follow up with us as scheduled. All of their concerns were addressed and they understand and agree with the plan. Speech recognition wood carving machine operator software was used to create portions of this document. An attempt at proofreading has been made to minimize errors. Please call for corrections. Julia Carr PA-C [address] [facility] [address], [place], [address], [facility] [place] [facility] 11/02/2024 10:42:24
== END 2024-11-17 08:21 | disposition home or self-care (01) ==
LOC: HO.US 08:20
PROVIDERS: PCP Internal Medicine; Visit Provider Internal Medicine
DX: K76.0 Fatty (change of) liver, not elsewhere classified (principal); K74.00 Hepatic fibrosis, unspecified; R74.8 Abnormal levels of other serum enzymes
CPT/HCPCS: 76700; 76981

== ENCOUNTER → 2024-11-17 08:21 | Outpatient (BNV) | payer OTHER, SELFPAY | PROVIDERS: PCP Internal Medicine; Visit Provider Radiology Diagnostic Radiology | DX: K76.0 Fatty (change of) liver, not elsewhere classified (principal); R16.0 Hepatomegaly, not elsewhere classified | CPT/HCPCS: 76700 ==

== ENCOUNTER 2025-01-03 10:02 | Outpatient (REF) | payer OTHER, SELFPAY ==
[2025-01-03 10:22] LABS: MANUAL DIFF FLAG NO
[2025-01-03 10:38] LABS: Basophils Absolute Auto 0.1 X10*3/uL (0.0-0.2); Basophils Percent Auto 0.7 % (0-2); Eosinophils Absolute Auto 0.1 X10*3/uL (0.0-0.4); Eosinophils Percent Auto 1.8 % (0-4); Hematocrit 45.6 % (42.0-52.0); Hemoglobin 14.8 g/dl (14.0-18.0); Imm Gran Abs Auto 0.02 X10*3/uL (0.00-0.03); Imm Gran Pct Auto 0.3 % (0.0-0.4); Lymphocytes Absolute Auto 1.8 X10*3/uL (1.2-4.9); Lymphocytes Percent Auto 25.3 % (20-40); Mean Corpuscular HGB Conc 32.5 g/dl (31.0-36.0); Mean Corpuscular Volume 83.2 fL (80.0-98.0); Mean Platelet Volume 10.3 fL (9.4-12.4); Monocytes Absolute Auto 0.5 X10*3/uL (0.1-1.2); Monocytes Percent Auto 7.3 % (2-11); Neutrophils Absolute Auto 4.6 x10*3/uL (2.0-8.3); Neutrophils Percent Auto 64.6 % (45-73); Platelet Count 212 X10*3/uL (160-400); Red Blood Count 5.48 X10*6/uL (4.60-5.80); Red Cell Distribution Width 13.3 % (11.0-16.0); White Blood Count 7.2 X10*3/uL (4.8-10.8)
[2025-01-03 10:44] LABS: INTERNATIONAL NORM RATIO 1.1 (0.9-1.1); Prothrombin Time 12.3 SEC (10.9-12.4)
[2025-01-03 10:49] LABS: Estimated Average Glucose 111 mg/dL; Hemoglobin A1C 134.8716 umol/L; Hemoglobin A1c % 5.5 % (<6.0); Total Hemoglobin (HGBA1C) 3740.2102 umol/L
[2025-01-03 11:24] LABS: Alanine Aminotransferase 40 U/L (0-40); Albumin Level 4.2 g/dL (3.5-5.0); Alkaline Phosphatase 63 U/L (39-117); Anion Gap 10 (12-20); Aspartate Amino Transferase 18 U/L (5-37); Blood Urea Nitrogen 14 mg/dL (9-16); Calcium 8.8 mg/dL (8.4-10.2); Carbon Dioxide 28 mmol/L (22-29); Chloride 107 mmol/L (96-108); Cholesterol 110 mg/dL (<200); Estimated Glomerular Filt Rate > 60; Glucose Random 101 mg/dL (60-115); Potassium 4.1 mmol/L (3.3-5.1); Sodium 141 mmol/L (135-145); Total Protein 7.5 g/dL (6.5-8.0); Triglycerides 61 mg/dL (<150)
--- OUTSIDE RECORDS SUMMARY | 2025-01-03 11:27 | XMS_ITS ---
Author Organization [facility] Address [address] [place] [address] Care Team Providers Care Packing Machine Inspector Name Role Phone Dixie Gomez Primary Care Provider Unavailab Yony Chaidez [phone] REASON FOR VISIT ursodiol refill Medications Medication SIG (Take, Route, Fr equency, Duration) Notes Start Date End Date Status Ursodiol 500 MG 2 Orally Twice a day for 30 day(s) 10/29/2023 Active Encounters Encounter Location Date Provider Diagnosis [facility] [address] [facility] [address] [place] [phone] 10/28/2023 Yony Licona Plan Of Treatment Medication Medication Name Sig Start Date Stop Date Notes Ursodiol 500 MG 2 Orally Twice a day for 30 day(s) 024 Next Appt Details Provider Name:Yony Licona , 10/19/2025 09:00:00 AM, [address] [facility] [address] [facility], [address], [place], [address], Progress Notes * PARVIN AMAYA LDOB:1975 ( 48 yo M)Acc No.[id number]:10/28/2023 Patient:?JOSE LUIS PARVIN Mendoza :1975???Age:48 Y???Sex:Male Address:[address] [place] [address], [place] [address] * Refills? Start Ursodiol Tablet, 500 MG, Orally, 120, 2, Twice a day, 30 day(s), Refills=11 * true * Date:? Generated for Printi ng/Marcela/Renaldoitting on:?01/03/2025 11:27 AM EDT
--- OUTSIDE RECORDS SUMMARY | 2025-01-03 11:27 | XMS_ITS ---
Author Organization [facility] Address [address] [place] [address] Care Team Providers Care Vp Research Name Role Phone Dixie Gomez Primary Care Provider Yony Guardado Unavailable [phone] Allergies No Known Allergies REASON FOR VISIT [...] 10/18/2024 Encounters Encounter Location Date Provider Diagnosis [facility] [address] [place] [address] 10/18/2024 Yony Licona Elevated liver enzym es [...] Name:Yony Licona , 10/19/2025 09:00:00 AM, [address] [place] [address], [facility], [place], [address], Progress Notes * JOSE LUIS YANNICK LDOB:1975 ( 49 yo M)Acc No.[id number]:10/18/2024 Progress Notes Patient:?YANNICK AMAYA Provider:?Yony Licona MD :1975???Age:49 Y???Sex:Male Telly e:10/18/2024 Address:[address] [place] [address] Pcp:Dixie Gomez Subjective: * Chief Complaints: * [...] elastography* sched for 11/17/24 at 8:30 am [facility] [place] 2nd floorfasting 8 hrs prior * 3.?Liver fibrosis?LAB: CHEM 7 PROFILE ?LAB: LIVER PROFILE ?LAB: CBC w DIFF ?LAB: ALPHA-FETOPROTEIN,TUMOR MARKER ?LAB: Prothrombin Time INR ?LAB: Liver Fibrosis Pnl ?LAB: Hemoglobin A1c ?Imaging: US abdomen comp w elastography* sched for 11/17/24 at 8:30 am [facility] dept 2nd floorfasting 8 hrs prior * * Procedure Codes:?3017F COLOR ECTAL CA SCREEN DOC [id number] TOBACCO NON-[id number] BP SCR NOT PRFRM REC REASON NOS * Preventive Medicine:? ??Counseling:?Care goal follow-up plan:?Above Normal BMI Follow-up?Giving encouragement to exercise,?BMI management provided?Yes.? * Follow Up:?1 Year * * Sign off status: Completed true * Provider:?Yony Licona MD Date:? 025 Generated for Saúl foster/Marcela/eTransmitting on:?01/03/2025 11:27 AM EDT History and Physical Notes * [...] alert and oriented SKIN: nonjaundiced, no spi wilfrid angiomata EXTREMITIES: no edema, no palmar erythem PERIPHERAL PULSES: BACK: BREASTS: MUSCULOSKELETAL: MALE GENITOURINARY: LYMPH NODES: RECTAL EXAM: FEMALE GENITOURINARY: ORAL CAVITY: mucosa moist
--- OUTSIDE RECORDS SUMMARY | 2025-01-03 11:27 | XMS_ITS ---
Author Organization [facility] Address [address] [place] [address] Care Team Providers Care Meter Inspector Name Role Phone Dixie Gomez Primary Care Provider Unavailab Yony Chaidez [phone] REASON FOR VISIT abdominal pain Medications Medication SIG (Take, Route, Fr equency, Duration) Notes Start Date End Date Status Dicyclomine HCl 10 MG take 1 or 2 Orally Every 6 hours as needed for rectal pain for 30 day(s) 10/15/2023 Active Encounters Encounter Location Date Provider Diagnosis [facility] [address] [place] [address] 08/02/2024 Yony Licona Rectal spasm K59.4 Assessments [...] Name:Yony Licona , 10/19/2025 09:00:00 AM, [address], [address], [place], [address], Progress Notes * PARVIN AMAYA LDOB:1975 ( 49 yo M)Acc No.[id number]:08/02/2024 Patient:?PARVIN AMAYA :1975???Age:49 Y???Sex:Male Address:[address] [place] [address] [facility] [place] [place], [place], [address] * Refills? Refill Dicyclomine HCl Capsule, 10 MG, Orally, 10, take 1 or 2, Every 6 hours as needed for rectal pain, 30 day(s), Refills=3 * true * Date:? Generated for Saúl foster/Marcela/Renaldoitting on:?01/03/2025 11:27 AM EDT
--- OUTSIDE RECORDS SUMMARY | 2025-01-03 11:27 | XMS_ITS | Patient Health Record ---
Author Organization [facility] Address [address] [place] [address] Care Team Providers Care Biological Plant Operator Name Role Phone Dixie Gomez Primary Care Provider Unavailab Yony Chaidez [phone] Allergies No Known Allergies Results Component Value Reference Range Notes US abdomen comp w elastograp hy (Not yet reviewed by provider) Interpretation: Performing Lab: Notes/Report: [address] [address] Ultrasound Report Signed Patient: Yannick Amaya MR#: [id number] : 1975 Acct:[id number] Age/Sex: 49 / M ADM Date: 11/17/24 Loc: HO.US Attending Dr: Yony Licona MD Ordering Physician: Yony Licona MD Date of Service: 11/17/24 Procedure(s): US abdomen comp w elastography Accession Number(s): [id number] cc: Dixie Gomez MD; Yony Licona MD EXAMINATION: US ABDOMEN COMPLETE WITH LIVER ELASTOGRAPHY HISTORY: FATTY LIVER, ELEVATED LFTS TECHNIQUE: Real-time grayscale ultrasound imaging of the abdomen was performed and images were reviewed. COMPARISON: Comparison is made with the prior examination dated 11/24/2023. FINDINGS: Liver: The right lobe of the liver measures 16.6 cm in size. The left lobe of the liver measures 10.6 cm in size. The liver demonstrates increased echotexture, consistent with steatosis. No focal mass or intrahepatic biliary ductal dilatation is identified. There is normal hepatopedal flow in the portal vein. Ultrasound elastography of the liver was performed with 10 separate measurements of the liver parenchyma with the patient in the supine position. Measurements were obtained approximately 2 cm below Bee's capsule and perpendicular to the capsule. Images are of satisfactory quality. The median shear wave velocity is 1.24 m/s (previously 1.09 m/s). The interquartile range/median (IQR/median) is 0.15. Gallbladder and biliary tree: The gallbladder is unremarkable, without evidence of calculi, wall thickening, or pericholecystic fluid. There is no sonographic Kurtz sign. The common bile duct is normal in caliber measuring 2 mm. Kidneys: The right kidney measures 12.5 cm in length and demonstrates a septated lower pole cyst measuring 8 x 7 x 6 mm. There is a 3 mm nonobstructing calculus at the lower pole. There is no hydronephrosis. The left kidney measures 12.9 cm in length and is unremarkable. Pancreas: The pancreatic head, neck, and body are unremarkable. The pancreatic tail is obscured by bowel gas. Spleen: The spleen is normal in size and contour, measuring 10.5 cm in length. Abdominal aorta and inferior vena cava: The visualized portions of the abdominal aorta and inferior vena cava are normal in caliber. There is no free fluid in the abdomen. US/US abdomen comp w elastography IMPRESSION: Hepatomegaly and hepatic steatosis. The median shear wave velocity in the liver is 1.24 m/s, corresponding to a median liver stiffness of 4.79 kPa. The IQR/median value is 0.15. This is indicative of a poor quality data set, and the estimated liver stiffness may be unreliable. Findings are indicative of a normal elastography value with a low likelihood of severe fibrosis or cirrhosis. REFERENCE: Society of Radiologists in Ultrasound Liver Stiffness Thresholds (2020): LIVER STIFFNESS THRESHOLDS: *Shear wave velocity less than 1.3 m/s (Liver Stiffness equal or less than 5 kPa): High probability of being normal. *Shear wave velocity less than 1.7 m/s (Liver Stiffness less than 9 kPa): In the absence of other known clinical signs, rules out compensated advanced chronic liver disease. *Shear wave velocity between 1.7-2.1 m/s (Liver Stiffness 9-13 kPa): Suggestive of compensated advanced chronic liver disease but need further test for confirmation. *Shear wave velocity between 2.1-2.4 m/s (Liver Stiffness 13-17 kPa): Rules in compensated advanced chronic liver disease. *Shear wave velocity greater than 2.4 m/s (Liver Stiffness over 17 kPa): Suggestive of clinically significant portal hypertension. QUALITY [...] liver stiffness thresholds are not well established. Electronically signed by: Yony Rose MD 11/17/2024 09:32 AM EDT RP Dictated By: Yony Rose MD Signed By: <Electronically signed by Yony Rose MD in OV> 11/17/24 0932 DD/ 0844 TD/TT: 11/17/24 0900 Bi Manager: [place] [id number] Ultrasound Report Signed Patient: Yannick Amaya#: [id number] : 1975 Acct:[id number] Age/Sex: 49 / M ADM Date: 11/17/24 Loc: HO.US Attending Dr: Yony Licona MD Ordering Physician: Yony Licona MD Date of Service: 11/17/24 Procedure(s): US abdomen comp w elastography Accession Number(s): [id number] cc: Dixie Gomez MD; Yony Licona MD EXAMINATION: US ABDO MEN COMPLETE WITH LIVER ELASTOGRAPHY HISTORY: FATTY LIVER , ELEVATED LFTS TECHNIQUE: Real-time grayscale ultrasound imaging of the abdomen was performed and images were reviewed. COMPARISON: Comparis on is made with the prior examination dated 11/24/2023. FINDINGS: Liver: The right lob e of the liver measures 16.6 cm in size. The left lobe of the liver measures 10.6 cm in size. The liver demonstrates increased echotextur e, consistent with steatosis. No focal mass or intrahepatic biliary ductal dilatation is identified. There is normal hepatopedal flow in the portal vein. Ultrasound elastogra phy of the liver was performed with 10 separate measurements of the liver parenchyma with the patient in the supine position. Measuremen ts were obtained approximately 2 cm below Bee's capsule an d perpendicular to the capsule. Images are of satisfactory quality. The median shear wav e velocity is 1.24 m/s (previously 1.09 m/s). The interquartile range/median (IQR/median) is 0.15. Gallbladder and bili shon tree: The gallbladder is unremarkable, without evidence of calculi, wall thickening, or pericholecystic fluid. There is no sonographic Kurtz sign. The common bile duct is normal in caliber measuring 2 mm. Kidneys: The right kidney measures 12.5 cm in length and demonstrates a septated lower anna marie e cyst measuring 8 x 7 x 6 mm. There is a 3 mm nonobstructing calcu joe at the lower pole. There is no hydronephrosis. The left kidney measures 12.9 cm in length and is unremarkable. Pancreas: The pancreatic head, neck, and body are unremarkable. The pancreatic tail is obscured by bowel gas. Spleen: The spleen i s normal in size and contour, measuring 10.5 cm in length. Abdominal aorta and inferior vena cava: The visualized portions of the abdominal aorta and inferior vena cava are normal in caliber. There is no free flu id in the abdomen. US/US abdomen comp w elastography IMPRESSION: Hepatomegaly and hepatic steatosis. The median shear wav e velocity in the liver is 1.24 m/s, corresponding to a median liver stiffness of 4.79 kPa. The IQR/median value is 0.15. This is indicative o f a poor quality data set, and the estimated liver stiffness may be unreliable. Findings are indicat conrad of a normal elastography value with a low likelihood of severe fibrosis or cirrhosis. REFERENCE: Society of Radiologi sts in Ultrasound Liver Stiffness Thresholds (2019): LIVER STIFFNESS THRESHOLDS: *Shear wave velocity less than 1.3 m/s (Liver Stiffness equal or less than 5 kPa): High probability of being normal. *Shear wave velocity less than 1.7 m/s (Liver Stiffness less than 9 kPa): In the absence of other known clinical signs, rules out compensated advanced chronic liver disease. *Shear wave velocity between 1.7-2.1 m/s (Liver Stiffness 9-13 kPa): Suggestive of compensated advanced chronic liver disease but need further test for confirmation. *Shear wave velocity between 2.1-2.4 m/s (Liver Stiffness 13-17 kPa): Rules in compensated advanced chronic liver disease. *Shear wave velocity greater than 2.4 m/s (Liver Stiffness over 17 kPa): Suggestive of clinically significant portal hypertension. QUALITY [...] vascular congestion, obstructive cholestasis, non-fasting state, and infiltrat conrad diseases such as amyloidosis and lymphoma. In some patients with NAFLD, the liver stiffness thresholds for compensated advanced chronic liver disease may be lower. In causes other than viral hepatitis and NAFLD, liver stiffness thresholds are not well established. Electronically carol d by: Yony Rose MD 11/17/2024 09:32 AM EDT Dictated By: Yony Rose MD Signed By: <Electronically signed by Yony Rose MD in OV> 11/17/24 0932 DD/ 0844 TD/TT: 11/17/24 0900 Bi Manager: Complete Blood Count Auto Di ff (Not yet reviewed by provider) Interpretation: Performing Lab:[facility], [address] [place] [address] Notes/Report: White Blood Count 7.2 4.8-10.8 X10*3/uL Red Blood Count 5.48 4.60-5.80 X10*6/uL Hemoglobin 14.8 14.0-18.0 g/dl Hematocrit 45.6 42.0-52.0 % Mean Corpuscular Volume 83.2 80.0-98.0 fL Mean Corpuscular Hemoglobin 27.0 27.0-33.0 pg Mean Corpuscular HGB Conc 32.5 31.0-36.0 g/dl Red Cell Distribution Width 13.3 11.0-16.0 % Platelet Count 212 160-400 X10*3/uL Mean Platelet Volume 10.3 9.4-12.4 fL Neutrophils Percent Auto 64.6 45-73 % Imm Gran Pct Auto 0.3 0.0-0.4 % Lymphocytes Percent Auto 25.3 20-40 % Monocytes Percent Auto 7.3 2-11 % Eosinophils Percent Auto 1.8 0-4 % Basophils Percent Auto 0.7 0-2 % NRBC Pct Auto 0.0 0.0-0.2 /100WBC Neutrophils Absolute Auto 4.6 2.0-8.3 x10*3/uL Imm Gran Abs Auto 0.02 0.00-0.03 X10*3/uL Lymphocytes Absolute Auto 1.8 1.2-4.9 X10*3/uL Monocytes Absolute Auto 0.5 0.1-1.2 X10*3/uL Eosinophils Absolute Auto 0.1 0.0-0.4 X10*3/uL Basophils Absolute Auto 0.1 0.0-0.2 X10*3/uL NRBC Abs Auto 0.000 0.0-0.012 X10*3/uL Prothrombin Time INR (Not ye t reviewed by provider) Interpretation: Performing Lab:[address] [address] Notes/Report: Prothrombin Time 12.3 10.9-12.4 SEC INTERNATIONAL NORM RATIO 1.1 0.9-1.1 INTERNATIONAL NORMALIZED RATIO (INR) REFERENCE RANGES Reference Range For patients not on anticoagulant therapy: 0.9 - 1.1 INR ranges for oral anticoagulant therapy: For prevention and treatment of venous thrombosis and pulmonary embolism: 2.0 - 3.0 For acute myocardial infarction with aspirin therapy: 2.0 - 3.0 For acute myocardial infarction without aspirin therapy: 3.0 - 4.0 For patients with mechanical prosthetic heart valves: 2.5 - 3.5 Hemoglobin A1c (Not yet revi ewed by provider) Interpretation: Performing Lab:[address] [address] Notes/Report: Hemoglobin A1c % 5.5 <6.0 % Hemoglobin A1C Reference Range Adults: 4.8 - 6.0 % Non diabetic: < 6.0 % Goal: < 7.0 % Additional Action Suggested: > 8.0 % Note: Hemoglobin A1c results are invalid for patients with abnormal amounts of HbF. Blood transfusions may impact the HbA1c concentration in the patient sample. Estimated Average Glucose 111 eAG = Estimated average glucose which is %A1C expressed as average glucose, using the formula of the [id number] Average Glucose study (ADAG), Diabetes Care, Vol.31,#8, 2007 Reason For Referral No Information Medications Medication [...] Problem Screening for malignant neoplasm of colon (954661519) Encounter for screening for malignant neoplasm of colon (Z12.11) Active confirmed Problem 851675786 Elevated liver enzymes (R74.8) Active confirmed Problem 115926393 Fatty liver (K76.0) Active confirmed Problem Gastroesophageal reflux disease (799831618) GERD (gastroesophageal reflux disease) (K21.9) Active confirmed Problem Esophageal reflux finding (828233973) Gastroesophageal reflux (K21.9) Active confirmed Problem 60720144 Abdominal distension (R14.0) Active confirmed Problem 600968273 Elevated liver function tests (R94.5) Active confirmed Problem Diverticulosis of colon (344628750) Diverticulosis of colon (K57.30) Active confirmed Problem 437244055 Steatohepatitis (K75.81) Active confirmed Problem 15531310 Liver fibrosis (K74.00) Active confirmed Problem Rectal spasm (K59.4) Active confirmed Vital Signs Blood pressure diastolic 00 mm Hg 10/18/2024 Height 72 in 10/18/2024 Blood pressure systolic 00 mm Hg 10/18/2024 Weight 266 lbs 10/18/2024 BMI 36.07 kg/m2 10/18/2024 Encounters Encounter Location Date Provider Diagnosis [facility] [address] [place] [address] 10/18/2024 Yony Licona Elevated liver enzym es R74.8 ; Fatty liver K76.0 ; Liver fibrosis K74.00 ; Rectal spasm K59.4 and Gastroesophageal reflux K21.9 [facility] [address] [place] [address] 08/02/2024 Yony Licona Rectal spasm K59.4 Assessments [...] 08/19/2018 BUN 08/19/2018 CREATININE 08/19/2018 LIVER PROFILE 10/27/2019 LIVER PROFILE 02/12/2019 LIVER PROFILE 06/26/2020 LIVER PROFILE 10/18/2024 LIVER PROFILE 01/24/2022 LIVER PROFILE 07/30/2021 LIVER PROFILE 10/14/2022 LIVER PROFILE 10/15/2023 LIVER PROFILE 09/30/2018 LIVER PROFILE 11/07/2018 CBC w DIFF 10/15/2023 CBC w DIFF 09/30/2018 CBC w DIFF 06/26/2020 CBC w DIFF 10/18/2024 CBC w DIFF 07/30/2021 CBC w DIFF 10/14/2022 PROTHROMBIN TIME (PT, INR) 09/30/2018 PROTHROMBIN TIME (PT, INR) 06/26/2020 PROTHROMBIN TIME (PT, INR) 07/30/2021 PARTIAL THROMBOPLASTIN TIME (PTT) 2018 ALPHA-FETOPROTEIN,TUMOR MARKER 1 ALPHA-FETOPROTEIN,TUMOR MARKER 4 ALPHA-FETOPROTEIN,TUMOR MARKER 5 ALPHA-FETOPROTEIN,TUMOR MARKER 3 ALPHA-FETOPROTEIN,TUMOR MARKER 0 US ABD 06/26/2020 HEPATITIS A ANTIBODY-IGG 09/30/2018 US ABDOMEN COMP WITH ELASTOGRAPHY 2022 US ABDOMEN COMP WITH ELASTOGRAPHY 2020 Complete Blood Count Auto Diff 5 Prothrombin Time INR 10/18/2024 Prothrombin Time INR 10/14/2022 Prothrombin Time INR 10/15/2023 Prothrombin Time INR 01/03/2025 Liver Fibrosis Pnl 10/18/2024 Liver Fibrosis Pnl 10/14/2022 Liver Fibrosis Pnl 10/15/2023 US abdomen comp w elastography 5 US abdomen comp w elastography 5 US abdomen comp w elastography 4 Hemoglobin A1c 10/18/2024 Hemoglobin A1c 01/03/2025 Future Test Test Name Order Date UPPER GI ENDOSCOPY 01/28/2022 COLONOSCOPY 01/28/2022 Next Appt Details Provider Name:Yony Valdez Monae , 10/19/2025 09:00:00 AM, [address], [address], [place], [address], Insurance Providers Payer Name Payer Address Payer Phone Subscriber Number Group Number Insured Name Patient Relationship to Insured Coverage Start Date Coverage End Date [facility] [address] [address] [place], [place] [id number] YANNICK AMAYA Self - patient is the insured MEDICAID OF [employer] [address] [place] [address] [id number] YANNICK AMAYA Self - patient is the insured Medical (General) History Medical History History ICD Code NIDDM HTN Denies [place],CVA,Lung disease,renal disease Bipolar disease/Depression Back pain GERD [...]
--- OUTSIDE RECORDS SUMMARY | 2025-01-03 11:27 | XMS_ITS | Clinical Summary ---
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 12 each 12/15/2024 Active Active Problems No known active problems Encounters Date Type Department Care Team Description 12/22/2024 9:00 AM EDT Consult Orthopedic Surgery - [place] [address] [facility] [address] [place] [phone] Romulo Sage PA Traumatic tear of right rotator cuff, unspecified tear extent, initial encounter (Primary Dx); Superior glenoid labrum lesion of right shoulder, initial encounter 12/15/2024 11:04 AM EDT - 12/15/2024 12:37 PM EDT Emergency [facility] Emergency [address] [place] [phone] Acute pain of right shoulder (Primary Dx) Discharge Disposition: Home or Self Care from Last 3 Months Social History Tobacco Use Types Packs/Day Years Used Date Smoking Tobacco: Never Assessed Sex and Gender Information Value Date Recorded Sex Assigned at Not on file Legal Sex Male 3:32 PM EST Gender Identity Not on file Sexual Orientation Not on file Obstetrics History Last Filed Vital Signs Vital Sign Reading Time Taken Comments Blood Pressure 137/97 12/15/2024 11:30 AM EDT Pulse 74 12/15/2024 11:30 AM EDT Temperature 37.1 ??C (98.8 ??F) 12/15/2024 11:31 AM E DT Respiratory Rate 16 12/15/2024 11:30 AM EDT Oxygen Saturation 96% 12/15/2024 11:30 AM EDT Inhaled Oxygen Concentration - - Weight 118 kg (260 lb) 12/22/2024 9:02 AM EDT Height 195.6 cm (6' 5 ) 12/22/2024 9:02 AM EDT Body Mass Index 30.83 12/22/2024 9:02 AM EDT Plan of Treatment Health Maintenance Due Date Last Done Comments DTaP,Tdap,and Td Vaccines (1 - Tdap) 1993 Hepatitis A Vaccines (1 of 2 - Risk 2-dose series) 1993 Hepatitis B Vaccines (1 of 3 [...] 10/01/2021, 02/13/2021, Additional history exists Influenza Vaccine (Season Ended) 2025 Cholesterol Screening (Lipid Panel) 09/09/2029 09/09/2024, 09/12/2017 [...] age to complete this topic Meningococcal B Vaccine Aged Out No l onger eligible based on patient's age to complete this topic RSV Immunization Patients Under 20 months Aged Out No longer eligible based on patient's age to complete this topic Varicella Vaccines Aged Out No longer eligible based on patient's age to complete this topic Procedures Procedure Name Priority Date/Time Associated Diagnosis Comments XR SHOULDER 2+ VIEWS RIGHT STAT 12/15/2024 11:50 AM EDT LIPID PANEL WITH REFLEX TO DIRECT LDL Routine 09/09/2024 8:54 AM EST Diabetes mellitus ([facility] V24, [facility] V28) Mixed hyperlipidemia Major depressive disorder, single episode in full remission ([facility] V24) Obstructive sleep apnea (adult) (pediatric) Left knee pain from Last 3 Months or Most Recently Relevant to Health Maintenance Results * XR Shoulder 2+ Views Right (12/15/2024 11:50 AM EDT) Anatomical Region Laterality Modality Upper Extremities, Shoulder Right Radi ographic Imaging 12/15/2024 12:0 8 PM EDT Impressions 12/15/2024 12:09 PM EDT FINDINGS/IMPRESSION: No acute fracture or dislocation. ??Mild degenerative changes at the acromioclavicular joint. ??Glenohumeral joint is preserved. ??No focal soft tissue swelling. -------- FINAL REPORT -------- Dictated By: NELIA SINGH Dictated Date: 12/15/2024 12:08 ET Assigned Physician: NELIA SINGH Reviewed and Electronically Signed By: NELIA SINGH Signed Date: 12/15/2024 12:09 ET Workstation ID: [id number] Transcribed By: Self Edit Transcribed Date: 12/15/2024 12:08 ET Narrative 12/15/2024 12:09 PM EDT XR SHOULDER 2+ VIEWS RIGHT INDICATION: ??Pain TECHNIQUE: XR SHOULDER 2+ VIEWS RIGHT COMPARISON: No priors available. Procedure Note Nelia Singh MD - 12/15/2024 XR SHOULDER 2+ VIEWS RIGHT INDICATION: Pain TECHNIQUE: XR SHOULDER 2+ VIEWS RIGHT COMPARISON: No priors available. IMPRESSION: FINDINGS/IMPRESSION: No acute fracture or dislocation. Mild degenerativechanges at the acromioclavicular joint. Glenohumeral joint is preserved.No focal soft tissue swelling. -------- FINAL REPORT -------- Dictated By: NELIA SINGH Dictated Date: 12/15/2024 12:08 ET Assigned Physician: NELIA SINGH Reviewed and Electronically Signed By: NELIA SINGH Signed Date: 12/15/2024 12:09 ET Workstation ID: [id number] Transcribed By: Self Edit Transcribed Date: 12/15/2024 12:08 ET us Ally WONG IMG XR PROCEDURES Final Result * (ABNORMAL) Lipid panel with reflex to direct LDL (09/09/2024 8:54 AM EST) Cholesterol 102 0 - 200 mg/dL LAB CHEMISTRY METHOD 09/09/2024 10:33 AM EST [facility] Triglycerides 68 0 - 150 mg/dL LAB CHEMISTRY METHOD 09/09/2024 10:33 AM EST [facility] HDL 39(L) >=40 mg/dL LAB CHEMISTRY METHOD 09/09/2024 10:33 AM [facility] LDL Calculated 49 0 - 100 mg/dL LAB CHEMISTRY METHOD 09/09/2024 10:33 AM EST [facility] VLDL Cholesterol Freddy 13.6 mg/dL LAB CHEMISTRY METHOD 09/09/2024 10:33 AM EST [facility] Non HDL Chol. (LDL+VLDL) 63 <145 mg/dL LAB CHEMISTRY METHOD 09/09/2024 10:33 AM EST [facility] Chol/HDL Ratio 2.6 0.0 - 4.4 LAB CHEMISTRY METHOD 09/09/2024 10:33 AM [facility] Blood Venous blood specimen / Unknown Venipuncture / Unknown 09/09/2024 8:54 AM EST 09/09/2024 9:30 AM EST us Dixie Gomez MD LAB BLOOD ORDERABLES Final Re sult [facility] [address] [place] [address], from Last 3 Months or Most Recently Relevant to Health Maintenance Insurance [facility] [employer] Care Teams Monument Letterer Relationship Specialty Start Date End Date Dixie Gomez MD [address] [place] [address] [place] [address] PCP - General Internal Medicine 10/08/17
[2025-01-03 11:28] LABS: Creatinine Urine 144.76 mg/dL; Microalbum/Creatinine Ratio Ur 8.2 ug/mg cr (<30)
[2025-01-03 11:29] LABS: Prostate Specific Antigen 0.56 ng/mL (<0.05-4.0)
[2025-01-03 11:30] LABS: Prostate Specific Antigen Scr 0.54 ng/mL (<0.05-4.0)
[2025-01-03 11:40] LABS: Alanine Aminotransferase 41 U/L (0-40); Albumin Level 4.3 g/dL (3.5-5.0); Alkaline Phosphatase 64 U/L (39-117); Anion Gap 9 (12-20); Aspartate Amino Transferase 19 U/L (5-37); Bilirubin Direct 0.3 mg/dL (0.0-0.5); Blood Urea Nitrogen 13 mg/dL (9-16); Calcium 8.8 mg/dL (8.4-10.2); Carbon Dioxide 29 mmol/L (22-29); Chloride 108 mmol/L (96-108); Estimated Glomerular Filt Rate > 60; Glucose Random 102 mg/dL (60-115); Potassium 4.1 mmol/L (3.3-5.1); Sodium 142 mmol/L (135-145); Total Protein 7.6 g/dL (6.5-8.0)
[2025-01-03 12:03] LABS: HDL Cholesterol 39 mg/dL (>40); LDL Cholesterol Calculated 59 mg/dL (<100)
[2025-01-04 11:54] LABS: Alpha Fetoprotein 1.4 ng/mL (<6.1)
[2025-01-10 14:53] LABS: FIB-ALT 29 U/L (9-46); FIB-Alpha-2-Macroglobulin 272 mg/dL (106-279); FIB-Apolipoprotein A1 136 mg/dL (94-176); FIB-GGT 16 U/L (3-95); FIB-Haptoglobin 155 mg/dL (43-212); FIB-Total Bilirubin 0.8 mg/dL (0.2-1.2); Liver Fibrosis Score 0.37; Liver Fibrosis Stage F1-F2; Nec Inflam Act Grade A0; Nec Inflam Act Score 0.15; Reference ID 5482628
== END 2025-01-03 10:03 | disposition home or self-care (01) ==
LOC: HO.LAB 10:02
PROVIDERS: Absent Provider Internal Medicine; PCP Internal Medicine; Referring Provider Nurse Practitioner Family; Visit Provider Internal Medicine
DX: E11.9 Type 2 diabetes mellitus without complications (principal); N52.9 Male erectile dysfunction, unspecified; N40.0 Benign prostatic hyperplasia without lower urinary tract symptoms
CPT/HCPCS: 36415; 80048; 80053; 80061; 80076; 81596; 82043; 82105; 82248; 82570; 83036; 84153; 85025; 85610

== ENCOUNTER 2025-01-04 09:36 | Outpatient (AMB) | payer OTHER, SELFPAY ==
--- NOTE | 2025-01-04 09:41 | MHC.OFFVIS ---
Intake Visit Reasons: yearly follow up/PSA Intake Note: Patient presents today for follow up on: microscopic hematuria and psa lab results PSA: 0.56 Urology Medications: sildenafil, tadalafil Blood Thinner: none Radiology Transcriptionist Required: No Accompanied by: Self / Same As Patient Allergies No Known Allergies Allergy (Verified 01/04/25 10:11) Medication List - Last Reconciled 01/04/25 by QUEENIE LoweryP- bupropion HCl XL 150 mg PO QAM cyclobenzaprine 10 mg PO BEDTIME eszopiclone 3 mg PO BEDTIME PRN lorazepam 1 - 2 mg PO TID PRN losartan 100 mg PO DAILY metformin 1,000 mg PO BID metoprolol succinate ER 100 mg PO DAILY olmesartan-hydrochlorothiazide 40-25 mg 1 tab PO DAILY omeprazole 20 mg PO DAILY paroxetine HCl 40 mg PO DAILY risperidone 4 mg PO QPM rosuvastatin 20 mg PO BEDTIME sildenafil 100 mg PO DAILY tadalafil (Cialis) 5 mg PO DAILY 90 days ursodiol 1,000 mg PO BID HPI Comments Details: Yannick is a pleasant 49 year old male patient of Dr. Gomez. He has a past medical history of obstructive sleep apnea, depression, bipolar disorder, hypercholesteremia, GERD, diabetes, obesity, and hypertension. He presents to the office today for follow-up of his ED and microscopic hematuria. In discussion with the patient today reports to be doing and feeling well. He reports noting significant improvement in maintaining and obtaining erections with 5 mg of Cialis daily. Recent PSA results reviewed with the patient today: 12/21 0.4, 12/22 0.4, 01/22 0.6 Previous workup has included a bladder ultrasound 11/20 noting bilateral ureteral jets are demonstrated. Pre void bladder room is 165 mL. Postvoid bladder volume is 3 mL. Prostate volume 27 mL. He otherwise denies any other issues and or concerns. When asked patient denies urinary frequency, urinary urgency, urinary incontinence, hematuria, dysuria, flank pain, fever and or chills. In office UA with microscopic hematuria otherwise WNL. Cytology 10/23 & 12/22 Negative for high-grade urothelial carcinoma. When asked patient he denies previous smoking history and or workplace chemical exposure. Discussed at length potential causes for microscopic hematuria. Discussed reasons for blood in the urine may include but are not limited to kidney stones, cancer in the urinary tract, BPH, kidney stone disease or inflammatory conditions of the urinary tract. I have discussed workup to include cystoscopy evaluation. He otherwise offers no other issues or concerns at this time. Plan For Erectile Dysfunction, the continuation of current medication is warranted as the patient sees improvements. Prescription renewals will be managed through [employer] [facility] [employer] as requested The patient will contact the office if any changes or issues arise before the scheduled follow-up. Patient was informed and verbally consented to the use of an ambient scribe for clinic note documentation during this visit. [facility] Medical History NEVAEH (obstructive sleep apnea) Depression Bipolar disorder Elevated cholesterol On beta krishna at home Hiatal hernia GERD (gastroesophageal reflux disease) Diabetes Spinal stenosis of lumbar region with neurogenic claudication Failed spinal cord stimulator Disc degeneration, lumbar Lipoma of chest wall Obesity Hypertension Surgical History History of esophagogastroduodenoscopy (EGD) Hx of colonoscopy H/O left knee surgery S/P insertion of spinal cord stimulator Family History Father HTN (hypertension) Mother HTN (hypertension) Social History Alcohol intake: never Patient Tobacco Use Status: Never used Tobacco Review of Systems Eyes Reports no additional complaints ENT Reports no additional complaints Card Reports as per [facility] Resp Reports as per [facility] GI Reports as per [facility] Reports as per [facility] Musc Reports as per [facility] Neuro Reports no additional complaints Psych Reports as per [facility] Endo Reports as per [facility] Johnathon/Lymph Reports no additional complaints Aller/Immun Reports no additional complaints Physical Exam Const General: cooperative, healthy appearing, comfortable, no acute distress, well developed, alert and awake Nutritional Appearance: overweight Orientation/consciousness: patient oriented x3 Limitations: no limitations HEENT Head: Yes normal to inspection, Yes normocephalic and Yes atraumatic Ears: hearing grossly normal bilaterally Eyes General: appearance normal, both eyes and all related structures Neck Neck: Yes normal visual inspection and Yes trachea midline Chest Chest palpation & inspection: normal inspection of the chest Resp Effort & Inspection: normal respiratory effort and able to speak in complete sentences Cardio Rate: regular rate GI Inspection: Yes normal to inspection General: Yes no CVA tenderness and Yes deferred Back/Spine/Pelvis Back: no CVA tenderness Skin General skin exam: no rashes or lesions noted Neuro General: patient oriented x3 Extrem General: Yes normal to inspection Psych Appearance: grossly normal and well kempt Mental Status: mental status grossly normal Speech and movement: Normal speech and movement present and Clear speech present Affect: normal affect Attitude: cooperative Thought process: Normal thought process present Thought content: Normal thought content present Insight: Good insight present (Psych) Judgement: Good judgement present (Psych) Results AMB Urinalysis, Automated UA Leukoctes 0 Carlos/uL Last Edit by [employer] Marinajessica on 01/04/25 09:56 UA Nitrite Last Edit by [employer] on 01/04/25 09:56 UA Urobilinogen 0.2 mg/dL Last Edit by [email or web address] Grayjessica on 01/04/25 09:56 UA Protein 15 mg/dL Last Edit by [employer]jessica on 01/04/25 09:56 UA pH 6.0 Last Edit by [employer]ja[employer]ellen Grayjessica on 01/04/25 09:56 UA Blood 25 Gutierrez/uL Last Edit by [employer] on 01/04/25 09:56 UA Specific Haskins 1.020 Last Edit by [employer] on 01/04/25 09:56 UA Ketone Last Edit by [employer] on 01/04/25 09:56 UA Bilirubin 0 mg/dL Last Edit by [employer] on 01/04/25 09:56 UA Glucose 0 mg/dL Last Edit by [employer] Marin[employer]essica on 01/04/25 09:56 Results Reviewed Results Reviewed: Laboratory Last Values Urine pH (Auto) 6.0 01/04/25 09:50 Specific Haskins (Auto) 1.020 01/04/25 09:50 Urine Protein (Auto) 15 mg/dL 01/04/25 09:50 Glucose (UA)(Auto) 0 mg/dL 01/04/25 09:50 Urine Blood (Auto) 25 Gutierrez/uL 01/04/25 09:50 Urine Bilirubin (Auto) 0 mg/dL 01/04/25 09:50 Urine Urobilinogen (Auto) 0.2 mg/dL 01/04/25 09:50 Leukocyte Esterase (Auto) 0 Carlos/uL 01/04/25 09:50 Assessment & Plan Assessment & Plan (1) Erectile dysfunction: Code(s): N52.9 - Male erectile dysfunction, unspecified Category: Medical Plan In office urinalysis results reviewed with the patient today; as noted above; will send for urine cytology. Recent PSA results reviewed with the patient today; as noted above. Continue Cialis as patient reports significant improvement in maintenance of his erections. We discussed lifestyle modifications to assist with ED as well as overall health and well-being. We discussed potential causes of microscopic hematuria as well as further workup to include imaging and cystoscopy versus surveillance monitoring; risks and benefits of these interventions were discussed. Will continue with surveillance monitoring at this time. Patient currently denies any bothersome urinary issues or concerns. He reports be happy with current voiding parameters. Will obtain PSA in 1 year. Follow-up in 1 year with PSA; or sooner with any issues, concerns, and or questions. Orders: Orders AMB Urinalysis Automated Today Z13.9 - Encounter for screening, unspecified Prostate Specific Antigen 1 Year N52.9 - Male erectile dysfunction, unspecified Urine Cytology Today R31.29 - Other microscopic hematuria Medications: Refilled tadalafil (Cialis) [facility] DR33 [id number] 5 mg PO DAILY 90 days 90 tabs 3RF Coding Level of Care Code Est Pt Level 3 (90750) Diagnoses Erectile dysfunction N52.9
--- OUTSIDE RECORDS SUMMARY | 2025-01-04 10:29 | XMS_ITS ---
Author Organization [facility] Address [address] [place] [address] Care Team Providers Care Linotype Mechanic Name Role Phone Dixie Gomez Primary Care Provider Yony Guardado Unavailable [phone] Allergies No Known Allergies REASON FOR VISIT [...] 10/18/2024 Encounters Encounter Location Date Provider Diagnosis [facility] [address] [place] [address] 10/18/2024 Yony Licona Elevated liver enzym es [...] Provider Name:Yony Licona , 10/19/2025 09:00:00 AM, [address] [place] [address], Suite [facility], [place], [address], Progress Notes * JOSE LUIS YANNICK LDOB:1975 ( 49 yo M)Acc No.[id number]:10/18/2024 Progress Notes Patient:?YANNICK AMAYA Provider:?Yony Licona MD :1975???Age:49 Y???Sex:Male Telly e:10/18/2024 Address:[address] [place] [address] Pcp:Dixie Gomez Subjective: * Chief Complaints: * [...] elastography* sched for 11/17/24 at 8:30 am [facility] ultrasound dept 2nd floorfasting 8 hrs prior * 3.?Liver fibrosis?LAB: CHEM 7 PROFILE ?LAB: LIVER PROFILE ?LAB: CBC w DIFF ?LAB: ALPHA-FETOPROTEIN,TUMOR MARKER ?LAB: Prothrombin Time INR ?LAB: Liver Fibrosis Pnl ?LAB: Hemoglobin A1c ?Imaging: US abdomen comp w elastography* sched for 11/17/24 at 8:30 am [facility] ultrasound dept 2nd floorfasting 8 hrs prior * * Procedure Codes:?3017F COLOR ECTAL CA SCREEN DOC CHK1894Y TOBACCO NON-LCMSY2652 BP SCR NOT PRFRM REC REASON NOS * Preventive Medicine:? ??Counseling:?Care goal follow-up plan:?Above Normal BMI Follow-up?Giving encouragement to exercise,?BMI management provided?Yes.? * Follow Up:?1 Year * * Sign off status: Completed true * Provider:?Yony Licona MD Date:? 025 Generated for Saúl foster/Marcela/eTransmitting on:?01/04/2025 10:28 AM EDT History and Physical Notes * [...]
--- OUTSIDE RECORDS SUMMARY | 2025-01-04 10:29 | XMS_ITS ---
Author Organization [facility] Address [address] [place] [address] Care Team Providers Care Project Hire Name Role Phone Dixie Gomez Primary Care Provider Unavailab Yony Chaidez [phone] REASON FOR VISIT ursodiol refill Medications Medication SIG (Take, Route, Fr equency, Duration) Notes Start Date End Date Status Ursodiol 500 MG 2 Orally Twice a day for 30 day(s) 10/29/2023 Active Encounters Encounter Location Date Provider Diagnosis [facility] [address] [facility] [address] [place] [address] 10/28/2023 Yony Licona Plan Of Treatment Medication Medication Name Sig Start Date Stop Date Notes Ursodiol 500 MG 2 Orally Twice a day for 30 day(s) 024 Next Appt Details Provider Name:Yony Licona , 10/19/2025 09:00:00 AM, [address] [facility], [address], [place], [address], Progress Notes * PARVIN AMAYA LDOB:1975 ( 48 yo M)Acc No.[id number]:10/28/2023 Patient:?JOSE LUIS PARVIN Mendoza :1975???Age:48 Y???Sex:Male Address:[address] [place] [address], [place] [address] * Refills? Start Ursodiol Tablet, 500 MG, Orally, 120, 2, Twice a day, 30 day(s), Refills=11 * true * Date:? Generated for Printi ng/Marcela/Renaldoitting on:?01/04/2025 10:29 AM EDT
--- OUTSIDE RECORDS SUMMARY | 2025-01-04 10:29 | XMS_ITS | Data Portability ---
Author Organization [facility] Address [address] [place] [address] Care Team Providers Care Vacuum Pan Tender Name Role Phone VIPINROX IGLESIAS Primary Care Provider Assessment No assessment recorded. Plan of Treatment Reminders Order Date Submit Date Provider Last Modified By Organization Details Last Modified Time Details Appointments NEW PROBLEM 10 2024 11:00A M Dontrell Garcia MD Not available Not available Not available Lab None recorded . Referral None recorded . Procedures None recorded . Surgeries None recorded . Imaging XR, knee, 4 or more view - rm 314- L 2023 024 rmessenger [facility] Office, [address] [facility], [facility] [address], [place], [address], 07/27/2024 14:09:46 Medication Orders None recorded . Patient TargetsNo targets recorded. Patient InstructionsNo instructions recorded. Reason for Referral None Reported. Results Created Date Observation Date Name Description Value Unit Range Abnormal Flag Note LastModifiedBy Organization Detail LastModifiedTime 07/11/20 24 07/11/2024 XR, knee, 4 or more view [email or web address] ?Encry pted=s hAaTro YD8dLq bEUv6g %2BXZw aYqtaq 0bqfl% 2Fg9IQ a4ajBk vP9nXo QUaueC m3YtLR FvZlgJ JJ8mAn HZtai3 8e2074 AC0Kqa HWEUqq lKiQtr MwF INTERFACE [facility] [address], [place], [address], 07/11/2024 10:46:33 07/11/20 24 07/11/2024 XR, knee, 4 or more view [email or web address] ?Encry pted=s Kennedy YD8dLq bEUv6g %2BXZw aYqtaq 0bqfl% 2Fg9IQ a4ajBk vP9nXo QUaueC m3YtLR FvZlgJ JJ8mAn HZtai3 0d6468 AC0Kqa HWEUqq lKiQtr MwF INTERFACE [employer] Office [address], [place], [address], 07/11/2024 10:46:35 Result Notes None recorded. Problems Name Problem SNOMED Code Status Onset Date Resolution Date Notes Provider Name and Address Organization Details Recorded Time Pain of left knee joint 6808620889228 07 Active 2023 Julia Mcintosh i, PA-C [address], [place], [address], [facility] 4 10:11:31 Osteoarthri tis of left knee joint 4891836139962 09 Active 2024 Julia Carr PA-C [address], [place], [address], [facility] 5 17:49:52 Problem Notes None recorded. Procedures Surgical History Date Name Laterality Status Provider Name and Address Organization Details Recorded Time 07/11/2024 Sports Knee 4&1 completed Julia Bateman PA-C [address], [place], [address], [facility] 07/11/2024 11:32:53 Imaging Results Imaging Date Name Status LastModified by Organiz ation Details LastModified Time 07/11/2024 XR, knee, 4 or more view completed INTERFACE [employer] Office [address], [place], [address], 07/11/2024 10:46:33 07/11/2024 XR, knee, 4 or more view completed INTERFACE [facility] Office [address], [place], [address], 07/11/2024 10:46:35 Procedure Notes None recorded. Medical Equipment None [...] and Address Organization Details Last Updated DateTime 07/11/2024 182.88 cm 38 kg/m2 960727.86 g MACARIO [facility] [employer] [facility] 07/11/2024 10:20:05 Date Recorded Body height Body mass index (BMI) Body weight Provider Name and Address Organization Details Last Updated DateTime 11/02/2024 182.88 cm 38 kg/m2 240957.86 g Terri Davis [employer] [facility] 11/02/2024 10:27:06 Social History Question Answer Notes LastModified by Organizat ion Details LastModified Time Tobacco Smoking Status Never Smoker MACARIO yoder [employer] [facility] 07/11/2024 10:19:20 What Is Your Level Of Alcohol Consumption? None [email or web address] Information not available 07/11/2024 What Is Your Relationship Status? Information not available 07/11/2024 Do You Use Any Illicit Or Recreational Drugs? No [email or web address] Information not available 07/11/2024 Do You Or Have You Ever Used Any Other Forms Of Tobacco Or Nicotine? No Information not available 07/11/2024 Sex: Unknown Functional Status None recorded. Mental Status None recorded. Family History Nothing Reported. Medical History Condition Response Diabetes Y Anxiety/Depression Y Arthritis Y Sleep Apnea Y Headaches Y Hypertension Y Cholesterol Y Past Encounters Encounter ID Performer Location Encounter Start Date Encounter Closed Date Diagnosis/Indication Diagnosis SNOMED-CT Code Diagnosis ICD10 Code Diagnosis Note [id number] Julia Bateman PA-C [facility] [address] [place] [address] 07/11/2024 09:53:16 07/27/2024 14:09:46 Pain of left knee joint 8431032230 05287 M25.666 [id number] CHAYA Caldwell [facility] [address] [place] [address] 11/02/2024 09:50:00 11/17/2024 14:16:15 Osteoarthritis of left knee joint 6033979249 66099 M17.12 Health Concerns Section Related Observation LastModified by Organization Detai ls LastModified Time None Recorded Concern Status LastModified by Organization Details LastModified Time None Recorded Advance Directives Directive None Recorded Payers Encounter Date Sequence Insurance Name Policy Number Policy Roblero Covered Member ID Roblero Member ID Guarantor Name 07/11/2024 1 [facility] PL[facility] (MEDICAID HMO) [id number] Yannick Hernandez [id number] Yannick Hernandez 11/02/2024 1 [facility] PLAN (MEDICAID HMO) [id number] Yannick Hernandez [id number] Yannick Hernandez Notes Date Note Type Note Provider Name and Address Organization Details Recorded Time 07/11/2024 text/html I am seeing the patient today under the supervision of {{Zoey Napier* [facility]}} who was available but who did not see the patient. HPI:Patient presents today regarding their {{Left* Right Bilater al}} knee. No new injury. Kguz-yyh-azqwffy medications are helping somewhat but not significantly. Pain is constant aching sometimes sharp pain with giving out sensations. History of left knee arthroscopy with partial medial and lateral menisectomy Dr. Garcia 2020 found to have grade 2 patella, grade 2 medial compartment, grade 2-3 lateral compartment. Denies mechanical catching or locking symptoms. Intermittent swelling noted. Past family, medical, social history and review of systems has been reviewed, updated and is located in the patient? s chart. PHYS EXAM:The patient is well appearing and in no apparent distress. Alert and oriented x3. Gait is mildly antalgic. Examination of the {{Left* Right Bilater al}} knee reveals no evidence of any edema, erythema, or warmth. No Deformity. Range of motion of the knee limited with mild discomfort at the end ranges. Mild effusion. Does have some tenderness to palpation about the diffuse hemijoint line. No tenderness to palpation about the lateral hemijoint line. Patellofemoral crepitus is noted. Calf is supple and nontender. Neurovascularly intact distally. X-RAYS:4v x-rays of the left knee ordered, obtained and reviewed at [facility] today demonstrates: mild medial compartment space narrowing bilaterally, mild patellofemoral space narrowing lateral patellar tilt and early lateral facet wear. Impression:{{Left* Ri ght Bilateral}} Knee osteoarthritis Plan:We discussed the role of conservative management including medications, physical therapy, injection and bracing. Discussed definitive treatment would include treatment arthroplasty in the future. At this point the patient elected to proceed with left knee cortisone injection. Please see procedure note. They will follow up with us as scheduled. All of their concerns were addressed and they understand and agree with the plan. Speech recognition crop duster helper software was used to create portions of this document. An attempt at proofreading has been made to minimize errors. Please call for corrections. Julia Bateman PA-C [address] [place] [address] [address], [place], [address], [facility] 07/11/2024 11:33:58 11/02/2024 text/html I am seeing the patient today under the supervision of {{Zoey Burton* [place] [facility]}} who was available but who did [...] x-rays of the left knee reviewed at [facility] today demonstrates: mild medial compartment space narrowing [...] and agree with the plan. Speech recognition crop duster helper software was used to create portions of this document. An attempt at proofreading has been made to minimize errors. Please call for corrections. Julia Carr PA-C [address] [facility] [address], [place], [address], [facility] 11/02/2024 10:42:24
--- OUTSIDE RECORDS SUMMARY | 2025-01-04 10:29 | XMS_ITS | Patient Health Record ---
Author Organization [facility] Address [address] [place] [address] Care Team Providers Care Sawdust Drier Name Role Phone Dixie Gomez Primary Care Provider Unavailab Yony Chaidez [phone] Allergies No Known Allergies Results Component Value Reference Range Notes US abdomen comp w elastograp hy (Not yet reviewed by provider) Interpretation: Performing Lab: Notes/Report: [address] [address] Ultrasound Report Signed Patient: Yannick Amaya MR#: [id number] : 1975 Acct:[id number] Age/Sex: 49 / M ADM Date: 11/17/24 Loc: HO.US Attending Dr: Yony Licona MD Ordering Physician: Yony Licona MD Date of Service: 11/17/24 Procedure(s): US abdomen comp w elastography Accession Number(s): [id number] cc: Dixie Gomez MD; Yony Licona MD [...] 11/17/24 0932 DD/ 0844 TD/TT: 11/17/24 0900 Glue Clamp Operator: [place] [address] Ultrasound Report Signed Patient: Yannick Amaya#: [id number] : 1975 Acct:[id number] Age/Sex: 49 / M ADM Date: 11/17/24 Loc: HO.US Attending Dr: Yony Licona MD Ordering Physician: Yony Licona MD Date of Service: 11/17/24 Procedure(s): US abdomen comp w elastography Accession Number(s): [id number] cc: Dixie Gomez MD; Yony Licona MD [...] stiffness may be unreliable. Findings are indicat cornad of a normal elastography value with a [...] 11/17/24 0932 DD/ 0844 TD/TT: 11/17/24 0900 Glue Clamp Operator: Complete Blood Count Auto Di ff (Not yet reviewed by provider) Interpretation: Performing Lab:[facility], [address] [place] [phone] Notes/Report: White Blood Count 7.2 4.8-10.8 X10*3/uL [...] ye t reviewed by provider) Interpretation: Performing Lab:[address] [address] Notes/Report: Prothrombin Time 12.3 10.9-12.4 [employer] [...] mechanical prosthetic heart valves: 2.5 - 3.5 Comprehensive Met. Panel (No t yet reviewed by provider) Interpretation: Performing Lab:[address] [address] Notes/Report: Sodium 141 135-145 mmol/L Potassium 4.1 3.3-5.1 mmol/L Chloride 107 96-108 mmol/L Carbon Dioxide 28 22-29 mmol/L Anion Gap 10 12-20 Blood Urea Nitrogen 14 9-16 mg/dL Creatinine 0.76 0.5-1.4 mg/dL Estimated Glomerular Filt Rate > 60 Chronic Kidney Disease: Estimated GFR < 60 mL/min/1.73m2 Severe Kidney Disease: Estimated GFR < 15 mL/min/1.73m2 Glucose Random 101 60-115 mg/dL Calcium 8.8 8.4-10.2 mg/dL Bilirubin Total 1.0 0.0-1.0 mg/dL Aspartate Amino Transferase 18 5-37 U/L Alanine Aminotransferase 40 0-40 U/L Total Protein 7.5 6.5-8.0 g/dL Albumin Level 4.2 3.5-5.0 g/dL Alkaline Phosphatase 63 39-117 U/L Liver Panel (Not yet reviewe d by provider) Interpretation: Performing Lab:[facility], [address] [place] [phone] Notes/Report: Bilirubin Total 1.0 0.0-1.0 mg/dL Bilirubin Direct 0.3 0.0-0.5 mg/dL Aspartate Amino Transferase 19 5-37 U/L Alanine Aminotransferase 41 0-40 U/L Total Protein 7.6 6.5-8.0 g/dL Albumin Level 4.3 3.5-5.0 g/dL Alkaline Phosphatase 64 39-117 U/L Basic Metabolic Panel Reviewed date:01/03/2025 03:27:11 PM Interpretation: Performing Lab:[facility], [address] [place] [phone] Notes/Report: Sodium 142 135-145 mmol/L Potassium 4.1 3.3-5.1 mmol/L Chloride 108 96-108 mmol/L Carbon Dioxide 29 22-29 mmol/L Anion Gap 9 12-20 Blood Urea Nitrogen 13 9-16 mg/dL Creatinine 0.78 0.5-1.4 mg/dL Estimated Glomerular Filt Rate > 60 Chronic Kidney Disease: Estimated GFR < 60 mL/min/1.73m2 Severe Kidney Disease: Estimated GFR < 15 mL/min/1.73m2 Glucose Random 102 60-115 mg/dL Calcium 8.8 8.4-10.2 mg/dL Lipid Panel (Not yet review ed by provider) Interpretation: Performing Lab:[facility], [address] [place] [phone] Notes/Report: Triglycerides 61 <150 mg/dL Desirable Triglyceride: less than 150 mg/dL Borderline High Triglyceride 150-199 mg/dL High Triglyceride: 200-499 mg/dL Very High Triglyceride: greater than or equal to 5OO mg/dL Cholesterol 110 <200 mg/dL Desirable Cholesterol: less than 200 mg/dL Borderline High Cholesterol: 200-239 mg/dL High Cholesterol: greater than 239 mg/dL LDL Cholesterol Calculated 59 <100 mg/dL Desirable LDL: less than 100 mg/dL Near Optimal/Above Optimal LDL: 110-129 mg/dL Borderline High LDL: 130-159 mg/dL High LDL: 160-189 mg/dL Very High LDL: greater than or equal to 190 mg/dL HDL Cholesterol 39 >40 mg/dL Desirable HDL: greater than 40 mg/dL Note: This HDL assay may give artificially low results in patients with liver disease. Prostate Specific Antigen [facility] Reviewed date:01/03/2025 03:33:14 PM Interpretation: Performing Lab:[facility], [address] [place] [phone] Notes/Report: Prostate Specific Antigen Scr 0.54 <0.05-4.0 ng/mL PSA methodology: Morillo Alinity i Chemiluminescent Microparticle Immunoassay (CMIA) Microalbumin, Random (Not ye t reviewed by provider) Interpretation: Performing Lab:[facility], [address] [place] [phone] Notes/Report: Creatinine Urine 144.76 Microalbumin Urine 12.0 Microalbum/Creatinine Ratio Ur 8.2 <30 ug/mg cr Albumin/Creatinine Ratio Reference Ranges: Normal: < 30 ug/mg creatinine Microalbuminuria: 30 - 300 ug/mg creatinine Clinical Albuminuria: > 300 ug/mg creatinine Hemoglobin A1c (Not yet revi ewed by provider) Interpretation: Performing Lab:[facility], [address] [place] [phone] Notes/Report: Hemoglobin A1c % 5.5 <6.0 % [...] average glucose, using the formula of the O5I-Kyok[employer] Average Glucose study (ADAG), Diabetes Care, Vol.31,#8, Mar. 2007 Reason For Referral No Information Medications [...] Problem Screening for malignant neoplasm of colon (347464191) Encounter for screening for malignant neoplasm of colon (Z12.11) Active confirmed Problem 541350223 Elevated liver enzymes (R74.8) Active confirmed Problem 435310610 Fatty liver (K76.0) Active confirmed Problem Gastroesophageal reflux disease (668883236) GERD (gastroesophageal reflux disease) (K21.9) Active confirmed Problem Esophageal reflux finding (147359091) Gastroesophageal reflux (K21.9) Active confirmed Problem 44770592 Abdominal distension (R14.0) Active confirmed Problem 642188575 Elevated liver function tests (R94.5) Active confirmed Problem Diverticulosis of colon (529929296) Diverticulosis of colon (K57.30) Active confirmed Problem 487155655 Steatohepatitis (K75.81) Active confirmed Problem 18840257 Liver fibrosis (K74.00) Active confirmed Problem Rectal spasm (K59.4) Active confirmed Vital Signs Blood pressure diastolic 00 mm Hg 10/18/2024 Height 72 in 10/18/2024 Blood pressure systolic 00 mm Hg 10/18/2024 Weight 266 lbs 10/18/2024 BMI 36.07 kg/m2 10/18/2024 Encounters Encounter Location Date Provider Diagnosis [facility] [address] [place] [phone] 10/18/2024 Yony Licona Elevated liver enzym es R74.8 ; Fatty liver K76.0 ; Liver fibrosis K74.00 ; Rectal spasm K59.4 and Gastroesophageal reflux K21.9 [facility] [address] [place] [phone] 08/02/2024 Yony Monae Rectal spasm K59.4 Assessments Encounter Date Diagnosis [...] 2020 US ABDOMEN COMP WITH ELASTOGRAPHY 2022 Complete Blood Count Auto Diff 5 Prothrombin Time INR 10/14/2022 Prothrombin Time INR 10/15/2023 Prothrombin Time INR 01/03/2025 Prothrombin Time INR 10/18/2024 Comprehensive Met. Panel 01/03/2025 Liver Panel 01/03/2025 Lipid Panel 01/03/2025 Liver Fibrosis Pnl 10/14/2022 Liver Fibrosis Pnl 10/15/2023 Liver Fibrosis Pnl 10/18/2024 Microalbumin, Random 01/03/2025 US abdomen comp w elastography 5 US abdomen comp w elastography 4 US abdomen comp w elastography 5 Hemoglobin A1c 01/03/2025 Hemoglobin A1c 10/18/2024 Future Test Test Name Order Date UPPER GI ENDOSCOPY 01/28/2022 COLONOSCOPY 01/28/2022 Next Appt Details Provider Name:Yony Courtney Licona , 10/19/2025 09:00:00 AM, [address], [address], [place], [address], Insurance Providers Payer Name Payer Address Payer Phone Subscriber Number Group Number Insured Name Patient Relationship to Insured Coverage Start Date Coverage End Date [facility] [address] [address] [place], [place] [id number] YANNICK AMAYA Self - patient is the insured MED[place] [place] [address] [place] [address] [phone] [id number] YANNICK AMAYA Self - patient is the insured Medical (General) History Medical History History ICD Code NIDDM HTN Denies UT,CVA,Lung disease,renal disease Bipolar disease/Depression Back pain GERD [...]
--- OUTSIDE RECORDS SUMMARY | 2025-01-04 10:29 | XMS_ITS | Clinical Summary ---
Author Organization [facility] Address [address] [place] [address] Phone Care Team Providers Care Munitions Handler Name Role Phone Dixie Gomez MD Primary Care Provider [phone] Allergies No known active allergies Medications methocarbamoL (ROBAXIN) 750 mg tablet Take 1 tablet (750 mg total) by mouth 4 (four) times a day. 12 each 12/15/2024 Active Active Problems No known active problems Encounters Date Type Department Care Team Description 12/22/2024 9:00 AM EDT Consult Orthopedic Surgery - [place] [address] [facility] [address] [place] [phone] Romulo Sage PA Traumatic tear of right rotator cuff, unspecified tear extent, initial encounter (Primary Dx); Superior glenoid labrum lesion of right shoulder, initial encounter 12/15/2024 11:04 AM EDT - 12/15/2024 12:37 PM EDT Emergency [facility] Emergency [address] [place] [phone] Acute pain of right shoulder (Primary Dx) [...] Routine 09/09/2024 8:54 AM EST Diabetes mellitus ([facility] V24, [facility] V28) Mixed hyperlipidemia Major depressive disorder, single episode in full remission ([facility] V24) Obstructive sleep apnea (adult) (pediatric) Left [...] Signed Date: 12/15/2024 12:09 ET Workstation ID: [id number] Transcribed By: Self Edit Transcribed Date: 12/15/2024 [...] Signed Date: 12/15/2024 12:09 ET Workstation ID: [id number] Transcribed By: Self Edit Transcribed Date: 12/15/2024 12:08 ET us Ally WONG IMG XR PROCEDURES Final Result * (ABNORMAL) Lipid panel with reflex to direct LDL (09/09/2024 8:54 AM EST) Cholesterol 102 0 - 200 mg/dL LAB CHEMISTRY METHOD 09/09/2024 10:33 AM EST [facility] Triglycerides 68 0 - 150 mg/dL LAB CHEMISTRY METHOD 09/09/2024 10:33 AM EST [facility] HDL 39(L) >=40 mg/dL LAB CHEMISTRY METHOD 09/09/2024 10:33 AM [facility] LDL Calculated 49 0 - 100 mg/dL LAB CHEMISTRY METHOD 09/09/2024 10:33 AM EST [facility] VLDL Cholesterol Freddy 13.6 mg/dL LAB CHEMISTRY METHOD 09/09/2024 10:33 AM EST [facility] Non HDL Chol. (LDL+VLDL) 63 <145 mg/dL LAB CHEMISTRY METHOD 09/09/2024 10:33 AM EST [facility] Chol/HDL Ratio 2.6 0.0 - 4.4 LAB CHEMISTRY METHOD 09/09/2024 10:33 AM [facility] Blood Venous blood specimen / Unknown Venipuncture / Unknown 09/09/2024 8:54 AM EST 09/09/2024 9:30 AM EST us Dixie Gomez MD LAB BLOOD ORDERABLES Final Re sult [facility] [address] [place] [address], from Last 3 Months or Most Recently Relevant to Health Maintenance Insurance [facility] Care Teams Munitions Handler Relationship Specialty Start Date End Date Dixie Gomez MD [address] [place] [address] [place] [address] PCP - General Internal Medicine 10/08/17
--- OUTSIDE RECORDS SUMMARY | 2025-01-04 10:29 | XMS_ITS ---
Author Organization [facility] Address [address] [place] [address] Care Team Providers Care Acid Retort Operator Name Role Phone Dixie Gomez Primary Care Provider Unavailab Yony Chaidez [phone] REASON FOR VISIT abdominal pain Medications Medication SIG (Take, Route, Fr equency, Duration) Notes Start Date End Date Status Dicyclomine HCl 10 MG take 1 or 2 Orally Every 6 hours as needed for rectal pain for 30 day(s) 10/15/2023 Active Encounters Encounter Location Date Provider Diagnosis [facility] [address] [place] [address] 08/02/2024 Yony Licona Rectal spasm K59.4 Assessments [...] Name:Yony Licona , 10/19/2025 09:00:00 AM, [address], [address], [place], [address], Progress Notes * PARVIN AMAYA LDOB:1975 ( 49 yo M)Acc No.[id number]:08/02/2024 Patient:?PARVIN AMAYA :1975???Age:49 Y???Sex:Male Address:[address] [place] [address] [facility], [place], [address] * Refills? Refill Dicyclomine HCl Capsule, 10 MG, Orally, 10, take 1 or 2, Every 6 hours as needed for rectal pain, 30 day(s), Refills=3 * true * Date:? Generated for Saúl foster/Marcela/Natachasmitting on:?01/04/2025 10:28 AM EDT
== END 2025-01-04 10:15 | disposition home or self-care (01) ==
LOC: HO.HUSH 09:37
PROVIDERS: PCP Internal Medicine; Visit Provider Nurse Practitioner Family
DX: N52.9 Male erectile dysfunction, unspecified (principal); Z13.9 Encounter for screening, unspecified
CPT/HCPCS: 99213

== ENCOUNTER 2025-01-04 09:36 | Outpatient (REF) | payer OTHER, SELFPAY ==
--- OUTSIDE RECORDS SUMMARY | 2025-01-04 11:25 | XMS_ITS | Clinical Summary ---
Author Organization [facility] Address [address] [place] [address] Phone Care Team Providers Care Dice Person Name Role Phone Dixie Gomez MD Primary Care Provider [phone] Allergies No known active allergies Medications methocarbamoL (ROBAXIN) 750 mg tablet Take 1 tablet (750 mg total) by mouth 4 (four) times a day. 12 each 12/15/2024 Active Active Problems No known active problems Encounters Date Type Department Care Team Description 12/22/2024 9:00 AM EDT Consult Orthopedic Surgery - [place] [address] [facility] [address] [place] [phone] Romulo Sage PA Traumatic tear of right rotator cuff, unspecified tear extent, initial encounter (Primary Dx); Superior glenoid labrum lesion of right shoulder, initial encounter 12/15/2024 11:04 AM EDT - 12/15/2024 12:37 PM EDT Emergency [facility] Emergency [address] [place] [phone] Acute pain of right shoulder (Primary Dx) [...] Routine 09/09/2024 8:54 AM EST Diabetes mellitus ([facility] V24, [facility] V28) Mixed hyperlipidemia Major depressive disorder, single episode in full remission ([facility] V24) Obstructive sleep apnea (adult) (pediatric) Left [...] Signed Date: 12/15/2024 12:09 ET Workstation ID: [id number] Transcribed By: Self Edit Transcribed Date: 12/15/2024 [...] Signed Date: 12/15/2024 12:09 ET Workstation ID: [id number] Transcribed By: Self Edit Transcribed Date: 12/15/2024 12:08 ET us Ally WONG IMG XR PROCEDURES Final Result * (ABNORMAL) Lipid panel with reflex to direct LDL (09/09/2024 8:54 AM EST) Cholesterol 102 0 - 200 mg/dL LAB CHEMISTRY METHOD 09/09/2024 10:33 AM EST [facility] Triglycerides 68 0 - 150 mg/dL LAB CHEMISTRY METHOD 09/09/2024 10:33 AM EST [facility] HDL 39(L) >=40 mg/dL LAB CHEMISTRY METHOD 09/09/2024 10:33 AM [facility] LDL Calculated 49 0 - 100 mg/dL LAB CHEMISTRY METHOD 09/09/2024 10:33 AM EST [facility] VLDL Cholesterol Freddy 13.6 mg/dL LAB CHEMISTRY METHOD 09/09/2024 10:33 AM EST [facility] Non HDL Chol. (LDL+VLDL) 63 <145 mg/dL LAB CHEMISTRY METHOD 09/09/2024 10:33 AM EST [facility] Chol/HDL Ratio 2.6 0.0 - 4.4 LAB CHEMISTRY METHOD 09/09/2024 10:33 AM [facility] Blood Venous blood specimen / Unknown Venipuncture / Unknown 09/09/2024 8:54 AM EST 09/09/2024 9:30 AM EST us Dixie Gomez MD LAB BLOOD ORDERABLES Final Re sult [facility] [address] [place] [address], from Last 3 Months or Most Recently Relevant to Health Maintenance Insurance [facility] [employer] Care Teams Dice Person Relationship Specialty Start Date End Date Dixie Gomez MD [address] [place] [address] [place] [address] PCP - General Internal Medicine 10/08/17
[2025-01-04 16:34] LABS: Urine Cytology See Pathology rpt
== END 2025-01-04 09:37 | disposition home or self-care (01) ==
LOC: HO.LAB 09:36
PROVIDERS: PCP Internal Medicine; Visit Provider Nurse Practitioner Family
DX: R31.29 Other microscopic hematuria (principal); N52.9 Male erectile dysfunction, unspecified; Z13.9 Encounter for screening, unspecified
CPT/HCPCS: 81003; 88112; 99212